=== PATIENT | male | born 1990 | race African-American/Black ===

== ENCOUNTER 2024-08-25 14:17 | Inpatient (IN) | payer MEDICAID, SELFPAY ==
[2024-08-25] MEDS: LORazepam 1 MG TABLET PO (14:48)
[2024-08-25 14:53] VITALS: BMI 27.9
[2024-08-25 14:54] VITALS: BP 133/74; PULSE 75; RESP 16; TEMP 36.3; O2SAT 98
--- NOTE | 2024-08-25 15:40 | HO.PM.IMCN ---
History of Present Illness Data of Consult Service Date: 08/25/24 Primary Care Provider: None Physician HPI Reason for consult: Medical management 34-year-old male with a past medical history of bipolar disorder, anxiety, depression, suicidal ideation. Presented to [facility] with increased paranoia, and poor sleep, and suicidal ideation with a plan to overdose on fentanyl. Patient reports that he does not have insurance and ran out of his medications and has been off of them for 1 week. He is admitted here for further care. Patient reports that he is HIV positive, previously took Biktarvy, he has been off of all medications for 1 year due to social issues including homelessness and insurance. On exam he is alert, and cooperative. Denies any medical concerns. Concerned about discoloration that he has his fingertips, he is a cigarette smoker. Reports that he has discoloration to his fingertips and his toenails that has been persistent for a few months. No jaundice noted to his eyes, his skin color is within normal limits for his ethnicity. Denies any shortness of breath, chest pain, dizziness lightheadedness or any other concerning symptoms. Review of Systems Review of Systems: Denies any shortness of breath, chest pain, dizziness, lightheadedness, abdominal pain or discomfort, nausea vomiting or diarrhea PMFSH Social History Advance Directives: No Advance Directives Information Provided: No Meds Allergies Allergy/AdvReac Type Severity Reaction Status Date / Time aspirin Allergy Hemolytic Verified 08/25/24 14:52 Anemia quetiapine (From Seroquel) Allergy Seizure Verified 08/25/24 15:56 Active Medications: Current Medications Acetaminophen (Acetaminophen 325 Mg Tablet) 650 mg PO Q6H PRN PRN Reason: Headache/Pain, Scale 1-10 Al Hydroxide/Mg Hydroxide (Magnesium Hydrox/Alum Hydrox 30 Ml Oral.Susp) 30 ml PO Q6H PRN PRN Reason: Heartburn/Nausea Hydroxyzine HCl (Hydroxyzine Hcl 25 Mg Tablet) 25 mg PO Q6H PRN PRN Reason: mild anxiety Magnesium Hydroxide (Milk Of Magnesia 30 Ml Oral.Susp) 30 ml PO DAILY PRN PRN Reason: Constipation Nicotine Polacrilex (Nicotine Polacrilex 2 Mg Gum) 4 mg BUCCAL Q2H PRN PRN Reason: Nicotine Cravings Trazodone HCl (Trazodone Hcl 50 Mg Tablet) 50 mg PO BEDTIME X1 PRN PRN Reason: Insomnia Home Medications ?Medication ?Instructions ?Recorded ?Confirmed ?Last Taken ?Type aripiprazole 15 mg tablet (Abilify) 15 mg PO DAILY 08/25/24 08/25/24 08/25/24 History sertraline 100 mg tablet 100 mg PO DAILY 08/25/24 08/25/24 08/25/24 History trazodone 50 mg tablet 50 mg PO BEDTIME 08/25/24 08/25/24 08/24/24 History Physical Exam Vital Signs and Narrative: Vital Signs: Last Vital Signs Temp 97.3 F 08/25/24 14:54 Pulse 75 08/25/24 14:54 Resp 16 08/25/24 14:54 BP 133/74 08/25/24 14:54 Pulse Ox 98 08/25/24 14:54 O2 Del Method Room Air 08/25/24 14:54 BMI result Body Mass Index 27.9 Alert and oriented X3, able to give good history. Neuro: CN II-X11 intact, no deficits, visual acuity intact EYES: PERRLA, EOM intact ENT: Hearing intact, lips moist Cardiac: S1 S2 RRR, No ectopy Pulmonary: lungs clear to auscultation, No increased WOB. Abdominal: BS active in all 4 quadrants, no guarding or tenderness MSK: Strength 5/5 upper and lower extremities : Deferred Extremities: No edema in lower extremities Psych: mood stable, Quiet and cooperative. Skin: Warm and dry, Intact Assessment and Plan (1) Bipolar 1 disorder: Status: Acute Plan Bipolar disorder/anxiety/depression Treatment per psych team HIV+ Patient has been off of his medications for 1 year Consult [place]
--- NOTE | 2024-08-25 15:53 | HO.PSYADMNOT ---
HPI Date of Service: 08/25/24 Chief Complaint: mental health crisis Sources of Information: patient interviewed, chart reviewed and crisis/core team assessment reviewed HPI Subjective Notes: Figueroa Warning and Conditional Voluntary Narrative: Patient is a 34 year old male with hx of bipolar disorder and PTSD presented ER due to suicidal ideation secondary being off his medications for about 1 week. Per crisis report, patient reports he has been very anxious and paranoid and has not been sleeping due to not having his medications for 1 week. He reports he began to have suicidal ideation last night with plan to overdose on fentanyl. Utox negative for all substances. Patient stated, when I am off my medications I have thoughts of hurting myself. I have not slept in a week. I feel like I am going in a very dark place . History of overdosing. History of attending substance abuse programs; history of cocaine use. During admission assessment, patient presents alert and oriented x3. Calm and cooperative. Patient reports feeling depressed ; patient stated, I just moved here 2 days ago from [place]. I'm originally from here and I wanted to get reconnected with family. I'm feeling suicidal because I can only do this so many times, where I go off my medications and I don't feel good. Maybe I'm better off not here . denies HI/VH/AH. He reports he does not have outpatient psychiatric providers at this time. Patient reports suicidal ideation with a plan to overdose on fentanyl. Past Psychiatric History: hx of 3 other inpatient psychiatric hospitalizations. hx of SA via OD on seroquel and fentanyl a year ago. denies hx of SIB. Medical Evaluation Reviewed: Yes [facility] Family History: Mother: bipolar Social History: Homeless, single. no kids. unemployed. highest level of education completed GED. Substance History: Pt reports using cocaine last weekend. denies any other substance use. utox negative for all substances. Trauma History: yes Diagnostics Vital Signs (24Hr): Vital Signs - 24 hr 08/25/24 14:54 Temperature 97.3 F Pulse Rate 75 Respiratory Rate 16 Blood Pressure 133/74 Pulse Oximetry 98 Oxygen Delivery Method Room Air BMI result Body Mass Index 27.9 Meds/Allergies Meds Home Medications ?Medication ?Instructions ?Recorded ?Confirmed ?Type aripiprazole 15 mg tablet (Abilify) 15 mg PO DAILY 08/25/24 08/25/24 History sertraline 100 mg tablet 100 mg PO DAILY 08/25/24 08/25/24 History trazodone 50 mg tablet 50 mg PO BEDTIME 08/25/24 08/25/24 History Allergies Allergies Allergy/AdvReac Type Severity Reaction Status Date / Time aspirin Allergy Hemolytic Verified 08/25/24 14:52 Anemia quetiapine (From Seroquel) Allergy Seizure Verified 08/25/24 15:56 Mental Status Exam Mental Status Exam Narrative: Pt is alert and oriented; behavior is cooperative and calm; dressed in casual attire; mood is described as depressed ; eye contact appropriate; Speech is normal rate, volume and not pressured; thought process is organized and goal directed; Thought content is on tx; denies HI/VH/AH. Patient reports suicidal ideation with a plan to overdose on fentanyl. Assessment & Plan Assessment & Plan (1) Bipolar 1 disorder: Status: Acute Code(s): F31.9 - Bipolar disorder, unspecified (2) PTSD (post-traumatic stress disorder): Status: Acute Code(s): F43.10 - Post-traumatic stress disorder, unspecified (3) Homelessness: Status: Acute Code(s): Z59.00 - Homelessness unspecified Plan Patient is a 34 year old male with hx of bipolar disorder and PTSD presented ER due to suicidal ideation secondary being off his medications for about 1 week. Plan: CV 15 minute safety checks Continue home medications Obtain collateral Encourage groups Referral to outpatient psychiatric providers Discharge planning Patient educated on: diagnosis and medication risk/benefits Reason for continued inpatient stay Substantial Risk for: harm to self and med/psych decompensation Statement Statement: I have reviewed the history and physical and performed a pertinent examination on my patient. No changes have occurred unless specified. If the History and Physical was not performed prior to admission, the Hospitalist's service will be consulted for completing the admission physical. Time Spent With Patient Time: Total time managing care of this patient today _60___ minutes.
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
[2024-08-25] MEDS: Hydrocortisone 1 % Cream 28.35 GM TUBE 1 APPL TOPICAL (18:54)
[2024-08-25 20:00] VITALS: BP 134/78; PULSE 80; RESP 16; TEMP 36.4; O2SAT 98
[2024-08-25 22:07] VITALS: BP 137/88
[2024-08-25] MEDS: cloNIDine HCL 0.1 MG TABLET PO (22:07)
[2024-08-25] MEDS: hydrOXYzine HCL 25 MG TABLET PO (22:07)
[2024-08-25] MEDS: chlorproMAZINE HCl 25 MG TABLET PO (22:07)
[2024-08-25] MEDS: traZODone HCL 50 MG TABLET PO (23:37)
--- NOTE | 2024-08-26 | ECG_ITS ---
Test Reason : CK QT Blood Pressure : */* mmHG Vent. Rate : 72 BPM Atrial Rate : 72 BPM P-R Int : 142 ms QRS Dur : 96 ms QT Int : 404 ms P-R-T Axes : 42 28 3 degrees QTcB Int : 442 ms Normal sinus rhythm Minimal voltage criteria for LVH, may be normal variant ( R in aVL ) ST elevation, consider early repolarization, pericarditis, or injury Nonspecific ST and T wave abnormality Abnormal ECG No previous ECGs available Referred By: Ivelisse García Electronically Signed By: WILFRID STEPHENS
[2024-08-26 07:59] VITALS: BP 96/55; PULSE 80; RESP 16; TEMP 36.4; O2SAT 99
--- NOTE | 2024-08-26 07:59 | PC.NURSE ---
At the start of the shift Ej was having blood drawn when he became nauseous and lightheaded. He became minimally responsive to verbal commands but was still able to flutter his eyes open. Breathing was even and unlabored. Oxygen remained 98-100% throughout episode. Ej was noted to be hypotensive at 83/44 and bradycardic with HR fluctuating around 50BPM. Dr. Thornton was present on the unit and was able to check in with Ej. Within five minutes the episode began to pass and Ej began talking more actively and feeling better. Upon recheck BP was 101/60 and pulse was 68. He began speaking normally, drinking juice, and eating a sandwich. He was seen by ANITHA García who stated that this was likely a vasovegal episode brought on by the combination of clonidine and needle phobia. Clonidine was DC'd.
[2024-08-26 08:23] LABS: Estimated Average Glucose 85 mg/dL; Hemoglobin A1c % 4.6 % (<6.0); Total Hemoglobin (HGBA1C) 3617.0002 umol/L
[2024-08-26 08:31] LABS: Cholesterol 143 mg/dL (<200); HDL Cholesterol 37 mg/dL (>40); LDL Cholesterol Calculated 69 mg/dL (<100); Triglycerides 187 mg/dL (<150)
--- NOTE | 2024-08-26 08:32 | HO.PM.IMCN ---
History of Present Illness Data of Consult Service Date: 08/26/24 Primary Care Provider: None Physician HPI Reason for consult: Synopal episode 34-year-old male with a past medical history of bipolar disorder, anxiety, depression, suicidal ideation. Presented to [facility] with increased paranoia, and poor sleep, and suicidal ideation with a plan to overdose on fentanyl. Admittd to inpatient psych for treatment. Reported by nursing that as patient had his blood drawn, he became nauseous and lightheaded. Per nursing he was minimally responsive to verbal commands, hypotensive at 83/44 and bradycardic with HR around 50 BPM. On exam he is awake and alert , eating a large breakfast. Vitals and mentation improved. He reports having seizure like episode last evening but this is self reported. Not verified by staff. He reports feeling shaky, but other gunn denies any SOB, Chest pain, dizziness, lightheadedness, palpitations or other concerning symptoms. Review of Systems Review of Systems: Denies any shortness of breath, chest pain, dizziness, lightheadedness, abdominal pain or discomfort, nausea vomiting or diarrhea PMFSH Social History Household Members: None Housing: Homeless Do you presently have visiting nurse or other home services: No Patient Tobacco Use Status: Current everyday Tobacco user Tobacco use type: Cigarette Cigarettes Per Day: 5 e-Cigarette/Vaping Use: Never Used Patient Interested in Nicotine Replacement: Yes (patch) Currently Displaying Signs/Symptoms of Drug Intoxication Withdrawal: No Have you been hit, kicked, punched, or otherwise hurt by someone within the past year? If so, by whom?: No Do you feel safe in your current relationship?: No Current Relationship Is there a partner from a previous relationship who is making you feel unsafe now?: No Are you made to feel afraid or neglected: No Spiritual Healthcare Practices: Yes Advance Directives: No Advance Directives Information Provided: No Do you have thoughts of harming others: None Do you have a plan to hurt others: No Plan Recently lost weight without trying: No How much weight loss: Not applicable Eating poorly because of decreased appetite: No Nutrition screen score: 0 Nutrition Risks: No Nutritional Risk Poor oral hygiene: No Meds Allergies Allergy/AdvReac Type Severity Reaction Status Date / Time aspirin Allergy Hemolytic Verified 08/25/24 14:52 Anemia quetiapine (From Seroquel) Allergy Seizure Verified 08/25/24 15:56 Active Medications: Current Medications Acetaminophen (Acetaminophen 325 Mg Tablet) 650 mg PO Q6H PRN PRN Reason: Headache/Pain, Scale 1-10 Al Hydroxide/Mg Hydroxide (Magnesium Hydrox/Alum Hydrox 30 Ml Oral.Susp) 30 ml PO Q6H PRN PRN Reason: Heartburn/Nausea Aripiprazole (Aripiprazole 15 Mg Tablet) 15 mg PO DAILY ADILENE Chlorpromazine HCl (Chlorpromazine Hcl 25 Mg Tablet) 25 mg PO Q6H PRN PRN Reason: Anxiety Last Admin: 08/25/24 22:07 Dose: 25 mg Hydrocortisone (Hydrocortisone 1 % Cream 28.35 Gm Tube) 1 appl TOPICAL BID PRN; Protocol PRN Reason: Dry Skin Last Admin: 08/25/24 18:54 Dose: 1 appl Hydroxyzine HCl (Hydroxyzine Hcl 25 Mg Tablet) 25 mg PO Q6H PRN PRN Reason: mild anxiety Last Admin: 08/25/24 22:07 Dose: 25 mg Magnesium Hydroxide (Milk Of Magnesia 30 Ml Oral.Susp) 30 ml PO DAILY PRN PRN Reason: Constipation Melatonin (Melatonin 3 Mg Tablet) 6 mg PO BEDTIME PRN PRN Reason: Insomnia Nicotine Polacrilex (Nicotine Polacrilex 2 Mg Gum) 4 mg BUCCAL Q2H PRN PRN Reason: Nicotine Cravings Olanzapine (Olanzapine 5 Mg Tablet) 5 mg PO Q4H PRN PRN Reason: agitation Sertraline HCl (Sertraline Hcl 100 Mg Tablet) 100 mg PO DAILY ADILENE Trazodone HCl (Trazodone Hcl 50 Mg Tablet) 50 mg PO BEDTIME MRX1 PRN PRN Reason: Insomnia Last Admin: 08/25/24 23:37 Dose: 50 mg Home Medications ?Medication ?Instructions ?Recorded ?Confirmed ?Last Taken ?Type aripiprazole 15 mg tablet (Abilify) 15 mg PO DAILY 08/25/24 08/25/24 08/25/24 History sertraline 100 mg tablet 100 mg PO DAILY 08/25/24 08/25/24 08/25/24 History trazodone 50 mg tablet 50 mg PO BEDTIME 08/25/24 08/25/24 08/24/24 History Physical Exam Vital Signs and Narrative: Vital Signs: Last Vital Signs Temp 97.5 F 08/26/24 07:59 Pulse 80 08/26/24 07:59 Resp 16 08/26/24 07:59 BP 96/55 L 08/26/24 07:59 Pulse Ox 99 08/26/24 07:59 O2 Del Method Room Air 08/26/24 07:59 BMI result Body Mass Index 27.9 CONST: Alert and oriented, in NAD. Well nourished HEENT: Normocephalic, atraumatic, MMM, Eyes clear, Neck supple RESP: Lungs clear, RRR even and regular HEART:,RRR, S1, S2. no edema GI:Abdomen Soft NT, ND. + BS times four :Deferred SKIN: Warm dry and intact, no visible lesions or rashes NEURO:CN II-XII Intact bilaterally, Sensation intact. Speech clear PSYCH: Normal affect Results Labs Labs: Laboratory Results - last 24 hr 08/26/24 07:47 Estimat Average Glucose 85 Hemoglobin A1c % 4.6 Triglycerides 187 H Cholesterol 143 LDL Cholesterol, Calc 69 HDL Cholesterol 37 L Assessment and Plan (1) Episode of syncope: Qualifiers: Syncope type: vasovagal syncope Qualified Code(s): R55 - Syncope and collapse Status: Acute Plan Synocopal episode-Likely due to Vasovagal response Most likely due to evening clonidine and blood draw. 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 Received dose of clonidine last evening, heart rate and blood pressure on the lower side this morning which may have contributed. Encourage fluids, DC clonidine. Continue to monitor and update medicine with any concerns or changes Thank you for allowing me to participate in the care of this patient. Signing off at this time. Please reconsult of any acute concerns or issues arise
[2024-08-26] MEDS: ARIPiprazole 15 MG TABLET PO (08:41)
[2024-08-26] MEDS: Sertraline HCL 100 MG TABLET PO (08:41)
[2024-08-26 08:47] LABS: Free T4 (Free Thyroxine) 0.89 ng/dL (0.71-1.85); Thyroid Stimulating Hormone 0.35 uIU/mL (0.32-4.0)
[2024-08-26 09:00] LABS: Folate 6.7 ng/mL (> or = 4.0)
--- NOTE | 2024-08-26 10:44 | HO.PSYCHPN ---
Subjective Subjective Date of Service: 08/26/24 Reason For Visit: mental health crisis Subjective Notes: Conditional Voluntary Interim History: Pt reports feeling better since restarting his home medications. pt stated, I'm not feeling depressed anymore. I'm just anxious. I feel like the medications kicked in . denies SI/HI/VH/AH. Encouraged to attend groups. Per nursing, slept 5 hours last night. Continue current tx plan. Medication Compliance: Yes Side effects from medications: No Attending Groups: No Mental Status Exam Mental Status Exam Narrative: Pt is alert and oriented; behavior is cooperative and calm; dressed in casual attire; mood is described as anxious ; eye contact appropriate; Speech is normal rate, volume and not pressured; thought process is organized; Thought content is on tx; denies SI/HI/VH/AH. Diagnostics Vital Signs (24Hr): Vital Signs - 24 hr 08/25/24 14:54 08/25/24 20:00 08/25/24 22:07 Temperature 97.3 F 97.6 F Pulse Rate 75 80 Respiratory Rate 16 16 Blood Pressure 133/74 134/78 137/88 Pulse Oximetry 98 98 Oxygen Delivery Method Room Air Room Air 08/26/24 07:59 Temperature 97.5 F Pulse Rate 80 Respiratory Rate 16 Blood Pressure 96/55 L Pulse Oximetry 99 Oxygen Delivery Method Room Air BMI result Body Mass Index 27.9 Labs Labs: Laboratory Results - last 48 hr 08/26/24 07:47 Estimat Average Glucose 85 Hemoglobin A1c % 4.6 Triglycerides 187 H Cholesterol 143 LDL Cholesterol, Calc 69 HDL Cholesterol 37 L Folate 6.7 TSH 0.35 Free T4 0.89 Medications Medications Current Medications Acetaminophen (Acetaminophen 325 Mg Tablet) 650 mg PO Q6H PRN PRN Reason: Headache/Pain, Scale 1-10 Al Hydroxide/Mg Hydroxide (Magnesium Hydrox/Alum Hydrox 30 Ml Oral.Susp) 30 ml PO Q6H PRN PRN Reason: Heartburn/Nausea Aripiprazole (Aripiprazole 15 Mg Tablet) 15 mg PO DAILY ADILENE Last Admin: 08/26/24 08:41 Dose: 15 mg Chlorpromazine HCl (Chlorpromazine Hcl 25 Mg Tablet) 25 mg PO Q6H PRN PRN Reason: Anxiety Last Admin: 08/25/24 22:07 Dose: 25 mg Hydrocortisone (Hydrocortisone 1 % Cream 28.35 Gm Tube) 1 appl TOPICAL BID PRN; Protocol PRN Reason: Dry Skin Last Admin: 08/25/24 18:54 Dose: 1 appl Hydroxyzine HCl (Hydroxyzine Hcl 25 Mg Tablet) 25 mg PO Q6H PRN PRN Reason: mild anxiety Last Admin: 08/25/24 22:07 Dose: 25 mg Magnesium Hydroxide (Milk Of Magnesia 30 Ml Oral.Susp) 30 ml PO DAILY PRN PRN Reason: Constipation Melatonin (Melatonin 3 Mg Tablet) 6 mg PO BEDTIME PRN PRN Reason: Insomnia Nicotine Polacrilex (Nicotine Polacrilex 2 Mg Gum) 4 mg BUCCAL Q2H PRN PRN Reason: Nicotine Cravings Olanzapine (Olanzapine 5 Mg Tablet) 5 mg PO Q4H PRN PRN Reason: agitation Sertraline HCl (Sertraline Hcl 100 Mg Tablet) 100 mg PO DAILY ADILENE Last Admin: 08/26/24 08:41 Dose: 100 mg Trazodone HCl (Trazodone Hcl 50 Mg Tablet) 50 mg PO BEDTIME MRX1 PRN PRN Reason: Insomnia Last Admin: 08/25/24 23:37 Dose: 50 mg Allergies Allergies Allergy/AdvReac Type Severity Reaction Status Date / Time aspirin Allergy Hemolytic Verified 08/25/24 14:52 Anemia quetiapine (From Seroquel) Allergy Seizure Verified 08/25/24 15:56 Assessment & Plan Assessment & Plan (1) Bipolar 1 disorder: Status: Acute Code(s): F31.9 - Bipolar disorder, unspecified (2) PTSD (post-traumatic stress disorder): Status: Acute Code(s): F43.10 - Post-traumatic stress disorder, unspecified (3) Homelessness: Status: Acute Code(s): Z59.00 - Homelessness unspecified Plan Patient is a 34 year old male with hx of bipolar disorder and PTSD presented ER due to suicidal ideation secondary being off his medications for about 1 week. Plan: CV 15 minute safety checks Continue home medications Obtain collateral Encourage groups Referral to outpatient psychiatric providers Discharge planning 08/26: Pt reports feeling better since restarting his home medications. pt stated, I'm not feeling depressed anymore. I'm just anxious. I feel like the medications kicked in . denies SI/HI/VH/AH. Encouraged to attend groups. Per nursing, slept 5 hours last night. Continue current tx plan. Patient educated on: diagnosis, medication risk/benefits and therapeutic strategies Reason for continued inpatient stay Substantial Risk for: med/psych decompensation Time Spent With Patient Time: Total time managing care of this patient today _20___ minutes.
[2024-08-26] MEDS: chlorproMAZINE HCl 25 MG TABLET PO ×2 (14:23→20:12)
[2024-08-26] MEDS: Nicotine Polacrilex 2 MG GUM 4 MG BUCCAL (14:31)
[2024-08-26] MEDS: Magnesium Hydrox/Alum Hydrox 30 ML ORAL.SUSP PO (16:24)
[2024-08-26] MEDS: Hydrocortisone 1 % Cream 28.35 GM TUBE 1 APPL TOPICAL (16:37)
[2024-08-26 20:00] VITALS: BP 123/61; PULSE 79; RESP 16; TEMP 36.8; O2SAT 99
[2024-08-26] MEDS: hydrOXYzine HCL 25 MG TABLET PO (20:12)
[2024-08-26] MEDS: traZODone HCL 50 MG TABLET PO (22:27)
--- NOTE | 2024-08-26 23:00 | W.PM.IDCN ---
History of Present Illness Data of Consult Service Date: 08/26/24 Requesting physician: Edy Sandoval Primary Care Provider: None Physician HPI Reason for consult: HIV positivity?meds He presents to hospital with SI and paranoia and poor sleep. He has thoughts of OD on fentanyl. He had been seen previously at [facility]. He has anxiety and depression and OUD and has moved to [place] and says previously lived in [place]. He denies OIs or STIs. Review of Systems Review of Systems: Yes all other systems are reviewed and are negative PMFSH Past Medical History Medical History (Updated 08/26/24 @ 23:04 by Joselin Fernandes MD) HIV (human immunodeficiency virus infection) Family History Family history: reviewed and not pertinent Social History Social History Household Members: None Housing: Homeless Do you presently have visiting nurse or other home services: No Patient Tobacco Use Status: Current everyday Tobacco user Tobacco use type: Cigarette Cigarettes Per Day: 5 e-Cigarette/Vaping Use: Never Used Patient Interested in Nicotine Replacement: Yes (patch) Currently Displaying Signs/Symptoms of Drug Intoxication Withdrawal: No Have you been hit, kicked, punched, or otherwise hurt by someone within the past year? If so, by whom?: No Do you feel safe in your current relationship?: No Current Relationship Is there a partner from a previous relationship who is making you feel unsafe now?: No Are you made to feel afraid or neglected: No Spiritual Healthcare Practices: Yes Advance Directives: No Advance Directives Information Provided: No Do you have thoughts of harming others: None Do you have a plan to hurt others: No Plan Recently lost weight without trying: No How much weight loss: Not applicable Eating poorly because of decreased appetite: No Nutrition screen score: 0 Nutrition Risks: No Nutritional Risk Poor oral hygiene: No service: No Sexual orientation: Straight/Heterosexual Meds Allergies Allergy/AdvReac Type Severity Reaction Status Date / Time aspirin Allergy Hemolytic Verified 08/25/24 14:52 Anemia quetiapine (From Seroquel) Allergy Seizure Verified 08/25/24 15:56 Active Medications: Current Medications Acetaminophen (Acetaminophen 325 Mg Tablet) 650 mg PO Q6H PRN PRN Reason: Headache/Pain, Scale 1-10 Al Hydroxide/Mg Hydroxide (Magnesium Hydrox/Alum Hydrox 30 Ml Oral.Susp) 30 ml PO Q6H PRN PRN Reason: Heartburn/Nausea Last Admin: 08/26/24 16:24 Dose: 30 ml Aripiprazole (Aripiprazole 15 Mg Tablet) 15 mg PO DAILY [facility] Last Admin: 08/26/24 08:41 Dose: 15 mg Bictegravir/Emtricitabine/Tenofovir (Bictegrav/Emtricit/Tenofov Ala Tablet) 1 tab PO DAILY [facility] Chlorpromazine HCl (Chlorpromazine Hcl 25 Mg Tablet) 25 mg PO Q6H PRN PRN Reason: Anxiety Last Admin: 08/26/24 20:12 Dose: 25 mg Hydrocortisone (Hydrocortisone 1 % Cream 28.35 Gm Tube) 1 appl TOPICAL BID PRN; Protocol PRN Reason: Dry Skin Last Admin: 08/26/24 16:37 Dose: 1 appl Hydroxyzine HCl (Hydroxyzine Hcl 25 Mg Tablet) 25 mg PO Q6H PRN PRN Reason: mild anxiety Last Admin: 08/26/24 20:12 Dose: 25 mg Magnesium Hydroxide (Milk Of Magnesia 30 Ml Oral.Susp) 30 ml PO DAILY PRN PRN Reason: Constipation Melatonin (Melatonin 3 Mg Tablet) 6 mg PO BEDTIME PRN PRN Reason: Insomnia Nicotine Polacrilex (Nicotine Polacrilex 2 Mg Gum) 4 mg BUCCAL Q2H PRN PRN Reason: Nicotine Cravings Last Admin: 08/26/24 14:31 Dose: 4 mg Olanzapine (Olanzapine 5 Mg Tablet) 5 mg PO Q4H PRN PRN Reason: agitation Sertraline HCl (Sertraline Hcl 100 Mg Tablet) 100 mg PO DAILY [facility] Last Admin: 08/26/24 08:41 Dose: 100 mg Trazodone HCl (Trazodone Hcl 50 Mg Tablet) 50 mg PO BEDTIME MRX1 PRN PRN Reason: Insomnia Last Admin: 08/26/24 22:27 Dose: 50 mg Home Medications ?Medication ?Instructions ?Recorded ?Confirmed ?Last Taken ?Type aripiprazole 15 mg tablet (Abilify) 15 mg PO DAILY 08/25/24 08/25/24 08/25/24 History sertraline 100 mg tablet 100 mg PO DAILY 08/25/24 08/25/24 08/25/24 History trazodone 50 mg tablet 50 mg PO BEDTIME 08/25/24 08/25/24 08/24/24 History Physical Exam Vital Signs: Vital Signs: Last Vital Signs Temp 98.2 F 08/26/24 20:00 Pulse 79 08/26/24 20:00 Resp 16 08/26/24 20:00 BP 123/61 08/26/24 20:00 Pulse Ox 99 08/26/24 20:00 O2 Del Method Room Air 08/26/24 20:00 BMI result Body Mass Index 27.9 Const: General: cooperative HEENT: Head: Yes normal to inspection Mouth: Normal oral and palatal mucosa present Resp: Effort & Inspection: normal respiratory effort Cardio: Rate: regular rate GI: Inspection: Yes normal to inspection Neuro: Other: nonfocal Assessment and Plan (1) HIV (human immunodeficiency virus infection): Status: Acute Plan He is interested in starting back on Biktarvy,he has been off for a year. Restart Biktary. Check labs,viral load ,CD4 count,some STI check I have set him up with outpatient care.
[2024-08-27 08:00] VITALS: BP 115/66; PULSE 103; RESP 16; TEMP 36.7; O2SAT 97
[2024-08-27 08:16] LABS: MANUAL DIFF FLAG NO
[2024-08-27 08:23] LABS: Basophils Percent Auto 0.3 % (0-2); Eosinophils Percent Auto 0.8 % (0-4); Hematocrit 39.3 % (42.0-52.0); Hemoglobin 13.8 g/dl (14.0-18.0); Imm Gran Abs Auto 0.02 X10*3/uL (0.00-0.03); Imm Gran Pct Auto 0.5 % (0.0-0.4); Lymphocytes Absolute Auto 1.7 X10*3/uL (1.2-4.9); Lymphocytes Percent Auto 45.6 % (20-40); Mean Corpuscular HGB Conc 35.1 g/dl (31.0-36.0); Mean Corpuscular Hemoglobin 31.9 pg (27.0-33.0); Mean Platelet Volume 11.5 fL (9.4-12.4); Monocytes Absolute Auto 0.3 X10*3/uL (0.1-1.2); Monocytes Percent Auto 8.5 % (2-11); Neutrophils Absolute Auto 1.7 x10*3/uL (2.0-8.3); Neutrophils Percent Auto 44.3 % (45-73); Platelet Count 167 X10*3/uL (160-400); Red Blood Count 4.32 X10*6/uL (4.60-5.80); Red Cell Distribution Width 12.6 % (11.0-16.0); White Blood Count 3.8 X10*3/uL (4.8-10.8)
[2024-08-27 08:39] LABS: Alanine Aminotransferase 17 U/L (0-40); Albumin Level 4.3 g/dL (3.5-5.0); Alkaline Phosphatase 51 U/L (39-117); Anion Gap 11 (12-20); Aspartate Amino Transferase 21 U/L (5-37); Bilirubin Direct 0.2 mg/dL (0.0-0.5); Bilirubin Total 0.6 mg/dL (0.0-1.0); Blood Urea Nitrogen 16 mg/dL (9-16); Calcium 10.1 mg/dL (8.4-10.2); Carbon Dioxide 25 mmol/L (22-29); Chloride 106 mmol/L (96-108); Estimated Glomerular Filt Rate > 60; Glucose Random 105 mg/dL (60-115); Potassium 4.4 mmol/L (3.3-5.1); Sodium 138 mmol/L (135-145); Total Protein 7.5 g/dL (6.5-8.0)
[2024-08-27 09:01] LABS: HBsAGNum1 0.42 S/CO (0.00-0.99); Hepatitis B Surface Antigen Negative (Negative); ~HepC Num1 1.43 S/CO (0.00-0.79); ~Hepatitis B Surface Antibody REACTIVE (Nonreactive); ~Hepatitis C Antibody Reactive (Nonreactive)
[2024-08-27 09:03] LABS: Syphilis Screen Reactive (Nonreactive)
[2024-08-27] MEDS: ARIPiprazole 15 MG TABLET PO (09:44)
[2024-08-27] MEDS: Sertraline HCL 100 MG TABLET PO (09:44)
[2024-08-27] MEDS: Bictegrav/Emtricit/Tenofov Ala TABLET 1 TAB PO (10:55)
--- NOTE | 2024-08-27 12:11 | P.PNPSI_ITS ---
Subjective Subjective Date of Service: 08/27/24 Reason For Visit: mental health crisis Subjective Notes: Conditional Voluntary Interim History: Pt continues to report feeling good ; he reports sleeping well last night. denies SI/HI/VH/AH. Pt reports he would like to be discharge on Saturday. If pt continues to improve will discharge; pt aware. Continue current tx plan. Medication Compliance: Yes Side effects from medications: No Attending Groups: No Mental Status Exam Mental Status Exam Narrative: Pt is alert and oriented; behavior is cooperative and calm; dressed in casual attire; mood is described as good ; eye contact appropriate; Speech is normal rate, volume and not pressured; thought process is organized; Thought content is on discharge; denies SI/HI/VH/AH. Diagnostics Vital Signs (24Hr): Vital Signs - 24 hr 08/26/24 20:00 08/27/24 08:00 Temperature 98.2 F 98.0 F Pulse Rate 79 103 H Respiratory Rate 16 16 Blood Pressure 123/61 115/66 Pulse Oximetry 99 97 Oxygen Delivery Method Room Air Room Air BMI result Body Mass Index 27.9 Labs 08/27/24 08:00 08/27/24 08:00 Labs: Laboratory Results - last 48 hr 08/26/24 08/27/24 07:47 08:00 WBC 3.8 L RBC 4.32 L Hgb 13.8 L Hct 39.3 L MCV 91.0 MCH 31.9 MCHC 35.1 RDW 12.6 Plt Count 167 MPV 11.5 Immature Gran % (Auto) 0.5 H Neut % (Auto) 44.3 L Lymph % (Auto) 45.6 H [place] % (Auto) 8.5 Eos % (Auto) 0.8 Baso % (Auto) 0.3 Lymph # (Auto) 1.7 [place] # (Auto) 0.3 Eos # (Auto) 0.0 Baso # (Auto) 0.0 Abs Immat Gran (auto) 0.02 Absolute Neuts (auto) 1.7 L Absolute Nucleated RBC 0.000 Nucleated RBC % (auto) 0.0 Sodium 138 Potassium 4.4 Chloride 106 Carbon Dioxide 25 Anion Gap 11 L BUN 16 Creatinine 1.07 Estim Creat Clear Calc 112.0 Estimated GFR > 60 Random Glucose 105 Estimat Average Glucose 85 Hemoglobin A1c % 4.6 Calcium 10.1 Total Bilirubin 0.6 Direct Bilirubin 0.2 AST 21 ALT 17 Alkaline Phosphatase 51 Total Protein 7.5 Albumin 4.3 Triglycerides 187 H Cholesterol 143 LDL Cholesterol, Calc 69 HDL Cholesterol 37 L Folate 6.7 TSH 0.35 Free T4 0.89 T.pallidum Ab (EIA) Reactive A Hep Bs Antigen Negative Hep Bs Antibody REACTIVE Hepatitis C Ab (EIA) Reactive H Medications Medications Current Medications Acetaminophen (Acetaminophen 325 Mg Tablet) 650 mg PO Q6H PRN PRN Reason: Headache/Pain, Scale 1-10 Al Hydroxide/Mg Hydroxide (Magnesium Hydrox/Alum Hydrox 30 Ml Oral.Susp) 30 ml PO Q6H PRN PRN Reason: Heartburn/Nausea Last Admin: 08/26/24 16:24 Dose: 30 ml Aripiprazole (Aripiprazole 15 Mg Tablet) 15 mg PO DAILY [facility] Last Admin: 08/27/24 09:44 Dose: 15 mg Bictegravir/Emtricitabine/Tenofovir (Bictegrav/Emtricit/Tenofov Ala Tablet) 1 tab PO DAILY [facility] Last Admin: 08/27/24 10:55 Dose: 1 tab Chlorpromazine HCl (Chlorpromazine Hcl 25 Mg Tablet) 25 mg PO Q6H PRN PRN Reason: Anxiety Last Admin: 08/26/24 20:12 Dose: 25 mg Hydrocortisone (Hydrocortisone 1 % Cream 28.35 Gm Tube) 1 appl TOPICAL BID PRN; Protocol PRN Reason: Dry Skin Last Admin: 08/26/24 16:37 Dose: 1 appl Hydroxyzine HCl (Hydroxyzine Hcl 25 Mg Tablet) 25 mg PO Q6H PRN PRN Reason: mild anxiety Last Admin: 08/26/24 20:12 Dose: 25 mg Magnesium Hydroxide (Milk Of Magnesia 30 Ml Oral.Susp) 30 ml PO DAILY PRN PRN Reason: Constipation Melatonin (Melatonin 3 Mg Tablet) 6 mg PO BEDTIME PRN PRN Reason: Insomnia Nicotine Polacrilex (Nicotine Polacrilex 2 Mg Gum) 4 mg BUCCAL Q2H PRN PRN Reason: Nicotine Cravings Last Admin: 08/26/24 14:31 Dose: 4 mg Olanzapine (Olanzapine 5 Mg Tablet) 5 mg PO Q4H PRN PRN Reason: agitation Sertraline HCl (Sertraline Hcl 100 Mg Tablet) 100 mg PO DAILY [facility] Last Admin: 08/27/24 09:44 Dose: 100 mg Trazodone HCl (Trazodone Hcl 50 Mg Tablet) 50 mg PO BEDTIME MRX1 PRN PRN Reason: Insomnia Last Admin: 08/26/24 22:27 Dose: 50 mg Allergies Allergies Allergy/AdvReac Type Severity Reaction Status Date / Time aspirin Allergy Hemolytic Verified 08/25/24 14:52 Anemia quetiapine (From Seroquel) Allergy Seizure Verified 08/25/24 15:56 Assessment & Plan Assessment & Plan (1) Bipolar 1 disorder: Status: Acute Code(s): F31.9 - Bipolar disorder, unspecified (2) PTSD (post-traumatic stress disorder): Status: Acute Code(s): F43.10 - Post-traumatic stress disorder, unspecified (3) HIV (human immunodeficiency virus infection): Status: Acute Code(s): Z21 - Asymptomatic human immunodeficiency virus [HIV] infection status (4) Homelessness: Status: Acute Code(s): Z59.00 - Homelessness unspecified Plan Patient is a 34 year old male with hx of bipolar disorder and PTSD presented ER due to suicidal ideation secondary being off his medications for about 1 week. Plan: CV 15 minute safety checks Continue home medications Obtain collateral Encourage groups Referral to outpatient psychiatric providers Discharge planning 08/26: Pt reports feeling better since restarting his home medications. pt stated, I'm not feeling depressed anymore. I'm just anxious. I feel like the medications kicked in . denies SI/HI/VH/AH. Encouraged to attend groups. Per nursing, slept 5 hours last night. Continue current tx plan. 08/27: Pt continues to report feeling good ; he reports sleeping well last night. denies SI/HI/VH/AH. Pt reports he would like to be discharge on Saturday. If pt continues to improve will discharge; pt aware. Continue current tx plan. Patient educated on: diagnosis, medication risk/benefits and therapeutic strategies Reason for continued inpatient stay Substantial Risk for: med/psych decompensation Time Spent With Patient Time: Total time managing care of this patient today __20__ minutes.
[2024-08-27] MEDS: Hydrocortisone 1 % Cream 28.35 GM TUBE 1 APPL TOPICAL (13:08)
[2024-08-27] MEDS: chlorproMAZINE HCl 25 MG TABLET PO ×2 (14:08→20:14)
[2024-08-27] MEDS: Milk of Magnesia 30 ML ORAL.SUSP PO (15:31)
[2024-08-27 20:00] VITALS: BP 114/56; PULSE 101; RESP 18; TEMP 37.2; O2SAT 98
[2024-08-27] MEDS: hydrOXYzine HCL 25 MG TABLET PO (20:14)
[2024-08-27] MEDS: traZODone HCL 50 MG TABLET PO (22:31)
[2024-08-27] MEDS: Magnesium Hydrox/Alum Hydrox 30 ML ORAL.SUSP PO (22:33)
[2024-08-28 07:59] VITALS: BP 124/60; PULSE 85; RESP 16; TEMP 36.9; O2SAT 99
[2024-08-28] MEDS: Sertraline HCL 100 MG TABLET PO (08:36)
[2024-08-28] MEDS: Bictegrav/Emtricit/Tenofov Ala TABLET 1 TAB PO (08:36)
[2024-08-28] MEDS: ARIPiprazole 15 MG TABLET PO (08:36)
[2024-08-28 08:57] LABS: Hepatitis A Antibody IgG Nonreactive (Nonreactive); ~Hepatitis A Antibody IgG 0.81 S/CO (0.00-0.99)
[2024-08-28] MEDS: ARIPiprazole 5 MG TABLET PO (12:04)
[2024-08-28 13:18] LABS: Toxoplasma IgG Antibody <7.20 IU/mL; Toxoplasma IgM Antibody <8.00 AU/mL
[2024-08-28] MEDS: Milk of Magnesia 30 ML ORAL.SUSP PO (13:42)
[2024-08-28] MEDS: polyethylene glycoL 3350 17 GM POWD.PACK PO (15:03)
[2024-08-28] MEDS: bisacodyL 10 MG SUPP.RECT PR (15:47)
[2024-08-28] MEDS: chlorproMAZINE HCl 25 MG TABLET PO ×2 (15:47→23:03)
--- NOTE | 2024-08-28 16:13 | HO.PSYCHPN ---
Subjective Subjective Date of Service: 08/28/24 Reason For Visit: mental health crisis Interim History: c/o ongoing paranoia of ppl staring, judging, laughing at him, talking about him. agrees to increase abilify to 20 mg daily. also c/o severe social anxiety. no change in zoloft dosing in years. agrees to increase dosing to 150 mg daily. per staff, anxious. flat. taking eds. napping intermittently. slept 8 hours. DC saturday. Mental Status Exam Mental Status Exam Narrative: Pt is alert and oriented; behavior is cooperative and calm; dressed in casual attire; mood is described as socially anxious; eye contact appropriate; Speech is normal rate, volume and not pressured; thought process is organized; Thought content is on discharge; denies SI/HI/VH/AH. Diagnostics Vital Signs (24Hr): Vital Signs - 24 hr 08/27/24 20:00 08/28/24 07:59 Temperature 98.9 F 98.4 F Pulse Rate 101 H 85 Respiratory Rate 18 16 Blood Pressure 114/56 L 124/60 Pulse Oximetry 98 99 Oxygen Delivery Method Room Air Room Air BMI result Body Mass Index 27.9 Labs 08/27/24 08:00 08/27/24 08:00 Labs: Laboratory Results - last 48 hr 08/27/24 08:00 WBC 3.8 L RBC 4.32 L Hgb 13.8 L Hct 39.3 L MCV 91.0 MCH 31.9 MCHC 35.1 RDW 12.6 Plt Count 167 MPV 11.5 Immature Gran % (Auto) 0.5 H Neut % (Auto) 44.3 L Lymph % (Auto) 45.6 H [place] % (Auto) 8.5 Eos % (Auto) 0.8 Baso % (Auto) 0.3 Lymph # (Auto) 1.7 [place] # (Auto) 0.3 Eos # (Auto) 0.0 Baso # (Auto) 0.0 Abs Immat Gran (auto) 0.02 Absolute Neuts (auto) 1.7 L Absolute Nucleated RBC 0.000 Nucleated RBC % (auto) 0.0 Sodium 138 Potassium 4.4 Chloride 106 Carbon Dioxide 25 Anion Gap 11 L BUN 16 Creatinine 1.07 Estim Creat Clear Calc 112.0 Estimated GFR > 60 Random Glucose 105 Calcium 10.1 Total Bilirubin 0.6 Direct Bilirubin 0.2 AST 21 ALT 17 Alkaline Phosphatase 51 Total Protein 7.5 Albumin 4.3 T.pallidum Ab (EIA) Reactive A Hepatitis A IgG Ab Nonreactive Hep Bs Antigen Negative Hep Bs Antibody REACTIVE Hepatitis C Ab (EIA) Reactive H Toxoplasma IgG Ab <7.20 Toxoplasma IgM Ab <8.00 Toxoplasma Ab Interp SEE NOTE Medications Medications Current Medications Acetaminophen (Acetaminophen 325 Mg Tablet) 650 mg PO Q6H PRN PRN Reason: Headache/Pain, Scale 1-10 Al Hydroxide/Mg Hydroxide (Magnesium Hydrox/Alum Hydrox 30 Ml Oral.Susp) 30 ml PO Q6H PRN PRN Reason: Heartburn/Nausea Last Admin: 08/27/24 22:33 Dose: 30 ml Aripiprazole (Aripiprazole 20 Mg Tablet) 20 mg PO DAILY [facility] Bictegravir/Emtricitabine/Tenofovir (Bictegrav/Emtricit/Tenofov Ala Tablet) 1 tab PO DAILY [facility] Last Admin: 08/28/24 08:36 Dose: 1 tab Chlorpromazine HCl (Chlorpromazine Hcl 25 Mg Tablet) 25 mg PO Q6H PRN PRN Reason: Anxiety Last Admin: 08/28/24 15:47 Dose: 25 mg Hydrocortisone (Hydrocortisone 1 % Cream 28.35 Gm Tube) 1 appl TOPICAL BID PRN; Protocol PRN Reason: Dry Skin Last Admin: 08/27/24 13:08 Dose: 1 appl Hydroxyzine HCl (Hydroxyzine Hcl 25 Mg Tablet) 25 mg PO Q6H PRN PRN Reason: mild anxiety Last Admin: 08/27/24 20:14 Dose: 25 mg Magnesium Hydroxide (Milk Of Magnesia 30 Ml Oral.Susp) 30 ml PO DAILY PRN PRN Reason: Constipation Last Admin: 08/28/24 13:42 Dose: 30 ml Melatonin (Melatonin 3 Mg Tablet) 6 mg PO BEDTIME PRN PRN Reason: Insomnia Nicotine Polacrilex (Nicotine Polacrilex 2 Mg Gum) 4 mg BUCCAL Q2H PRN PRN Reason: Nicotine Cravings Last Admin: 08/26/24 14:31 Dose: 4 mg Olanzapine (Olanzapine 5 Mg Tablet) 5 mg PO Q4H PRN PRN Reason: agitation Sertraline HCl (Sertraline Hcl 50 Mg Tablet) 150 mg PO DAILY [facility] Trazodone HCl (Trazodone Hcl 50 Mg Tablet) 50 mg PO BEDTIME MRX1 PRN PRN Reason: Insomnia Last Admin: 08/27/24 22:31 Dose: 50 mg Allergies Allergies Allergy/AdvReac Type Severity Reaction Status Date / Time aspirin Allergy Hemolytic Verified 08/25/24 14:52 Anemia quetiapine (From Seroquel) Allergy Seizure Verified 08/25/24 15:56 Assessment & Plan Assessment & Plan (1) Bipolar 1 disorder: Status: Acute Code(s): F31.9 - Bipolar disorder, unspecified (2) PTSD (post-traumatic stress disorder): Status: Acute Code(s): F43.10 - Post-traumatic stress disorder, unspecified (3) HIV (human immunodeficiency virus infection): Status: Acute Code(s): Z21 - Asymptomatic human immunodeficiency virus [HIV] infection status (4) Homelessness: Status: Acute Code(s): Z59.00 - Homelessness unspecified Plan Patient is a 34 year old male with hx of bipolar disorder and PTSD presented ER due to suicidal ideation secondary being off his medications for about 1 week. Plan: CV 15 minute safety checks Continue home medications Obtain collateral Encourage groups Referral to outpatient psychiatric providers Discharge planning 08/26: Pt reports feeling better since restarting his home medications. pt stated, I'm not feeling depressed anymore. I'm just anxious. I feel like the medications kicked in . denies SI/HI/VH/AH. Encouraged to attend groups. Per nursing, slept 5 hours last night. Continue current tx plan. 08/27: Pt continues to report feeling good ; he reports sleeping well last night. denies SI/HI/VH/AH. Pt reports he would like to be discharge on Saturday. If pt continues to improve will discharge; pt aware. Continue current tx plan. 08/28: increase abilify to 20 mg daily for ongoing paranoia. increase zoloft to 150 mg daily for social anxiety. improved mood from admission. planning to discharge saturday. Reason for continued inpatient stay Substantial Risk for: inability to function and rapid decompensation Time Spent With Patient Time: Total time managing care of this patient today _25___ minutes.
[2024-08-28] MEDS: Nicotine Polacrilex 2 MG GUM 4 MG BUCCAL (19:05)
[2024-08-28 20:00] VITALS: BP 137/78; PULSE 104; RESP 16; TEMP 36.8; O2SAT 99
[2024-08-28] MEDS: Magnesium Hydrox/Alum Hydrox 30 ML ORAL.SUSP PO (20:59)
[2024-08-28] MEDS: hydrOXYzine HCL 25 MG TABLET PO (21:48)
[2024-08-28] MEDS: traZODone HCL 50 MG TABLET PO ×2 (22:06→23:03)
[2024-08-29 07:45] VITALS: BP 103/56; PULSE 82; RESP 14; TEMP 36.5; O2SAT 98
[2024-08-29] MEDS: ARIPiprazole 20 MG TABLET PO (09:07)
[2024-08-29] MEDS: Bictegrav/Emtricit/Tenofov Ala TABLET 1 TAB PO (09:08)
[2024-08-29] MEDS: Sertraline HCL 50 MG TABLET 150 MG PO (09:09)
[2024-08-29] MEDS: Nicotine Polacrilex 2 MG GUM 4 MG BUCCAL (12:36)
[2024-08-29] MEDS: hydrOXYzine HCL 25 MG TABLET PO (14:34)
--- NOTE | 2024-08-29 16:33 | HO.PSYCHPN ---
Subjective Subjective Date of Service: 08/29/24 Reason For Visit: mental health crisis Interim History: Patient feels improved. Less paranoid. Tolerating medication changes well. Feels ready for DC soon. He has no complaints today. Slept well. No AVH. No SI/HI. Review of Systems Review of Systems Denies any shortness of breath, chest pain, dizziness, lightheadedness, abdominal pain or discomfort, nausea vomiting or diarrhea Yes all other systems are reviewed and are negative Mental Status Exam Mental Status Exam Narrative: Pt is alert and oriented; behavior is cooperative and calm; dressed in casual attire; mood is described as socially anxious; eye contact appropriate; Speech is normal rate, volume and not pressured; thought process is organized; Thought content is on discharge; denies SI/HI/VH/AH. Diagnostics Vital Signs (24Hr): Vital Signs - 24 hr 08/28/24 20:00 08/29/24 07:45 Temperature 98.2 F 97.7 F Pulse Rate 104 H 82 Respiratory Rate 16 14 Blood Pressure 137/78 103/56 L Pulse Oximetry 99 98 Oxygen Delivery Method Room Air Room Air BMI result Body Mass Index 27.9 Labs 08/27/24 08:00 08/27/24 08:00 Labs: Laboratory Results - last 48 hr 08/27/24 08:00 Hepatitis A IgG Ab Nonreactive Toxoplasma IgG Ab <7.20 Toxoplasma IgM Ab <8.00 Toxoplasma Ab Interp SEE NOTE Medications Medications Current Medications Acetaminophen (Acetaminophen 325 Mg Tablet) 650 mg PO Q6H PRN PRN Reason: Headache/Pain, Scale 1-10 Al Hydroxide/Mg Hydroxide (Magnesium Hydrox/Alum Hydrox 30 Ml Oral.Susp) 30 ml PO Q6H PRN PRN Reason: Heartburn/Nausea Last Admin: 08/28/24 20:59 Dose: 30 ml Aripiprazole (Aripiprazole 20 Mg Tablet) 20 mg PO DAILY [facility] Last Admin: 08/29/24 09:07 Dose: 20 mg Bictegravir/Emtricitabine/Tenofovir (Bictegrav/Emtricit/Tenofov Ala Tablet) 1 tab PO DAILY [facility] Last Admin: 08/29/24 09:08 Dose: 1 tab Chlorpromazine HCl (Chlorpromazine Hcl 25 Mg Tablet) 25 mg PO Q6H PRN PRN Reason: Anxiety Last Admin: 08/28/24 23:03 Dose: 25 mg Hydrocortisone (Hydrocortisone 1 % Cream 28.35 Gm Tube) 1 appl TOPICAL BID PRN; Protocol PRN Reason: Dry Skin Last Admin: 08/27/24 13:08 Dose: 1 appl Hydroxyzine HCl (Hydroxyzine Hcl 25 Mg Tablet) 25 mg PO Q6H PRN PRN Reason: mild anxiety Last Admin: 08/29/24 14:34 Dose: 25 mg Magnesium Hydroxide (Milk Of Magnesia 30 Ml Oral.Susp) 30 ml PO DAILY PRN PRN Reason: Constipation Last Admin: 08/28/24 13:42 Dose: 30 ml Melatonin (Melatonin 3 Mg Tablet) 6 mg PO BEDTIME PRN PRN Reason: Insomnia Nicotine Polacrilex (Nicotine Polacrilex 2 Mg Gum) 4 mg BUCCAL Q2H PRN PRN Reason: Nicotine Cravings Last Admin: 08/29/24 12:36 Dose: 4 mg Olanzapine (Olanzapine 5 Mg Tablet) 5 mg PO Q4H PRN PRN Reason: agitation Sertraline HCl (Sertraline Hcl 50 Mg Tablet) 150 mg PO DAILY [facility] Last Admin: 08/29/24 09:09 Dose: 150 mg Trazodone HCl (Trazodone Hcl 50 Mg Tablet) 50 mg PO BEDTIME MRX1 PRN PRN Reason: Insomnia Last Admin: 08/28/24 23:03 Dose: 50 mg Allergies Allergies Allergy/AdvReac Type Severity Reaction Status Date / Time aspirin Allergy Hemolytic Verified 08/25/24 14:52 Anemia quetiapine (From Seroquel) Allergy Seizure Verified 08/25/24 15:56 Assessment & Plan Assessment & Plan (1) Bipolar 1 disorder: Status: Acute Code(s): F31.9 - Bipolar disorder, unspecified (2) PTSD (post-traumatic stress disorder): Status: Acute Code(s): F43.10 - Post-traumatic stress disorder, unspecified (3) HIV (human immunodeficiency virus infection): Status: Acute Code(s): Z21 - Asymptomatic human immunodeficiency virus [HIV] infection status (4) Homelessness: Status: Acute Code(s): Z59.00 - Homelessness unspecified Plan Patient is a 34 year old male with hx of bipolar disorder and PTSD presented ER due to suicidal ideation secondary being off his medications for about 1 week. Plan: CV 15 minute safety checks Continue home medications Obtain collateral Encourage groups Referral to outpatient psychiatric providers Discharge planning 08/26: Pt reports feeling better since restarting his home medications. pt stated, I'm not feeling depressed anymore. I'm just anxious. I feel like the medications kicked in . denies SI/HI/VH/AH. Encouraged to attend groups. Per nursing, slept 5 hours last night. Continue current tx plan. 08/27: Pt continues to report feeling good ; he reports sleeping well last night. denies SI/HI/VH/AH. Pt reports he would like to be discharge on Saturday. If pt continues to improve will discharge; pt aware. Continue current tx plan. 08/28: increase abilify to 20 mg daily for ongoing paranoia. increase zoloft to 150 mg daily for social anxiety. improved mood from admission. planning to discharge saturday. 08/29: Continue current management and treatment plan. Reason for continued inpatient stay Substantial Risk for: harm to self and rapid decompensation Time Spent With Patient Time: Total time managing care of this patient today ____ minutes.
[2024-08-29] MEDS: Hydrocortisone 1 % Cream 28.35 GM TUBE 1 APPL TOPICAL (16:38)
[2024-08-29 19:23] LABS: HIV RNA PCR Qn Copies 6650 copies/mL (NOT DETECTED); HIV RNA PCR Qn Log Copies 3.82 (NOT DETECTED)
[2024-08-29 20:00] VITALS: BP 141/83; PULSE 99; RESP 16; TEMP 36.5; O2SAT 99
[2024-08-29 20:23] LABS: TS Negative Control Passed; TS Panel A 0; TS Panel B 1; TS Positive Control Passed; TSpotTB Negative (Negative)
[2024-08-29] MEDS: chlorproMAZINE HCl 25 MG TABLET PO (21:49)
[2024-08-29] MEDS: traZODone HCL 50 MG TABLET PO (21:49)
[2024-08-30] MEDS: traZODone HCL 50 MG TABLET PO (02:48)
[2024-08-30] MEDS: Hydrocortisone 1 % Cream 28.35 GM TUBE 1 APPL TOPICAL (07:26)
[2024-08-30 08:00] VITALS: BP 147/74; PULSE 97; RESP 18; TEMP 36.5; O2SAT 98
[2024-08-30] MEDS: Sertraline HCL 50 MG TABLET 150 MG PO (08:40)
[2024-08-30] MEDS: ARIPiprazole 20 MG TABLET PO (08:40)
[2024-08-30] MEDS: Bictegrav/Emtricit/Tenofov Ala TABLET 1 TAB PO (08:40)
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
[2024-08-30] MEDS: OLANZapine 5 MG TABLET PO ×2 (13:34→20:43)
[2024-08-30 20:00] VITALS: BP 136/76; PULSE 97; RESP 16; TEMP 36.6; O2SAT 99
[2024-08-30] MEDS: OXcarbazepine 300 MG TABLET PO (22:16)
[2024-08-30] MEDS: traZODone HCL 100 MG TABLET PO (22:34)
[2024-08-31] MEDS: Hydrocortisone 1 % Cream 28.35 GM TUBE 1 APPL TOPICAL (06:06)
[2024-08-31 07:25] VITALS: BP 124/72; PULSE 70; RESP 16; TEMP 36.6; O2SAT 99
[2024-08-31] MEDS: Bictegrav/Emtricit/Tenofov Ala TABLET 1 TAB PO (08:33)
[2024-08-31] MEDS: OXcarbazepine 300 MG TABLET PO (08:34)
[2024-08-31] MEDS: Sertraline HCL 50 MG TABLET 150 MG PO (08:34)
[2024-08-31] MEDS: ARIPiprazole 20 MG TABLET PO (08:35)
--- NOTE | 2024-08-31 09:33 | PM.PSYDC ---
DS: Providers Provider Date of Service: 08/31/24 Date of admission: 08/25/24 14:17 Date of discharge: 08/31/24 Primary care physician: Pilar Physician Admitting clinician: Beena Peace Attending physician on admission: Edy Sandoval Consults: 08/25/24 14:35 Consult to Hospitalist Routine Comment: Consulting Provider: [facility] Hospitalists Reason For Exam: OSH admission 08/25/24 16:29 Consult to Infectious Diseases Routine Consulting Provider: [facility] Reason for consultation: HIV+ Attending physician on discharge: Edy Sandoval Discharging clinician: Beena Peace DS: Diagnosis Discharge Diagnosis (1) Bipolar 1 disorder: Status: Acute (2) PTSD (post-traumatic stress disorder): Status: Acute (3) HIV (human immunodeficiency virus infection): Status: Acute (4) Homelessness: Status: Acute DS: Medications Discharge Medications Home Medications: Home Medications ?Medication ?Instructions ?Recorded ?Confirmed aripiprazole 15 mg tablet (Abilify) 15 mg PO DAILY 08/25/24 08/25/24 sertraline 100 mg tablet 100 mg PO DAILY 08/25/24 08/25/24 trazodone 50 mg tablet 50 mg PO BEDTIME 08/25/24 08/25/24 Mental Status Exam Mental Status Exam Narrative: Pt is alert and oriented; behavior is cooperative and calm; dressed in casual attire; mood is described as good ; eye contact appropriate; Speech is normal rate, volume and not pressured; thought process is organized; Thought content is on discharge; denies SI/HI/VH/AH. Data Data Completed and Pending Completed studies during hospitalization [Text1]: 08/26/24 08/27/24 08/27/24 07:47 08:00 08:01 WBC 3.8 L RBC 4.32 L Hgb 13.8 L Hct 39.3 L MCV 91.0 MCH 31.9 MCHC 35.1 RDW 12.6 Plt Count 167 MPV 11.5 Immature Gran % (Auto) 0.5 H Neut % (Auto) 44.3 L Lymph % (Auto) 45.6 H Churchill % (Auto) 8.5 Eos % (Auto) 0.8 Baso % (Auto) 0.3 Lymph # (Auto) 1.7 Churchill # (Auto) 0.3 Eos # (Auto) 0.0 Baso # (Auto) 0.0 Abs Immat Gran (auto) 0.02 Absolute Neuts (auto) 1.7 L Absolute Nucleated RBC 0.000 Nucleated RBC % (auto) 0.0 G6PD Pending Sodium 138 Potassium 4.4 Chloride 106 Carbon Dioxide 25 Anion Gap 11 L BUN 16 Creatinine 1.07 Estim Creat Clear Calc 112.0 Estimated GFR > 60 Random Glucose 105 Estimat Average Glucose 85 Hemoglobin A1c % 4.6 Calcium 10.1 Total Bilirubin 0.6 Direct Bilirubin 0.2 AST 21 ALT 17 Alkaline Phosphatase 51 Total Protein 7.5 Albumin 4.3 Triglycerides 187 H Cholesterol 143 LDL Cholesterol, Calc 69 HDL Cholesterol 37 L Folate 6.7 TSH 0.35 Free T4 0.89 Lymphocyte Subset Cmmnt Pending Total Lymphocytes Pending % CD3 Cells Pending Absolute CD3 Count Pending % CD4 Cells Pending Absolute CD4 Count Pending CD4/CD8 Ratio Pending % CD8 Cells Pending Absolute CD8 Count Pending RPR Pending T.pallidum Particle Agg Pending T.pallidum Ab (EIA) Reactive A Hepatitis A IgG Ab Nonreactive Hep Bs Antigen Negative Hep Bs Antibody REACTIVE Hepatitis C Ab (EIA) Reactive H Hep C Viral Load Pending Hep C Viral Load Log Pending HIV-1 RNA copies/mL 6650 H HIV-1 RNA logcopies/mL 3.82 H Toxoplasma IgG Ab <7.20 Toxoplasma IgM Ab <8.00 Toxoplasma Ab Interp SEE NOTE TB Test (T-Spot) Com Negative TB Test Nil Control Passed TB Test Panel A 0 TB Test Panel B 1 TB Test Positive Cntrl Passed DS: Summary Hospital Course Hospital Course: Patient is a 34 year old male with hx of bipolar disorder and PTSD presented ER due to suicidal ideation secondary being off his medications for about 1 week. Per crisis report, patient reports he has been very anxious and paranoid and has not been sleeping due to not having his medications for 1 week. He reports he began to have suicidal ideation last night with plan to overdose on fentanyl. Utox negative for all substances. Patient stated, when I am off my medications I have thoughts of hurting myself. I have not slept in a week. I feel like I am going in a very dark place . History of overdosing. History of attending substance abuse programs; history of cocaine use. During admission assessment, patient presents alert and oriented x3. Calm and cooperative. Patient reports feeling depressed ; patient stated, I just moved here 2 days ago from [place]. I'm originally from here and I wanted to get reconnected with family. I'm feeling suicidal because I can only do this so many times, where I go off my medications and I don't feel good. Maybe I'm better off not here . denies HI/VH/AH. He reports he does not have outpatient psychiatric providers at this time. Patient reports suicidal ideation with a plan to overdose on fentanyl. Plan: CV 15 minute safety checks Continue home medications Obtain collateral Encourage groups Referral to outpatient psychiatric providers Discharge planning Pt reports feeling better since restarting his home medications. pt stated, I'm not feeling depressed anymore. I'm just anxious. I feel like the medications kicked in . denies SI/HI/VH/AH. Encouraged to attend groups. Per nursing, slept 5 hours last night. Continue current tx plan. Pt continues to report feeling good ; he reports sleeping well last night. denies SI/HI/VH/AH. Pt reports he would like to be discharge on Saturday. If pt continues to improve will discharge; pt aware. Continue current tx plan. increase abilify to 20 mg daily for ongoing paranoia. increase zoloft to 150 mg daily for social anxiety. improved mood from admission. planning to discharge saturday. Trial of Trileptal 300 mg BID. Continue other management and treatment plan the same. Patient reports feeling good and ready to leave. denies SI/HI/VH/AH. Pt denies any side effects from medications. Pt reports he plans on following up with outpatient providers. Status at Discharge Cognitive/behavioral status at discharge: Patient has insight and demonstrates good judgment in terms of wanting to pursue treatment. Patient has a safety plan that includes presenting to the closest ER or calling 911 if feeling unsafe. Functional status at discharge: independent ambulation Overall status at discharge: patient is back to baseline Time Spent with Patient Time attestation: Total time managing care of this patient today _20___ minutes. Time spent: Less than 30 minutes Discharge Plan Discharge Anticipated Discharge Date/Time: 08/31/24 11:30 Patient Disposition: Home, Self-Care Discharge Diagnosis: Bipolar d/o, PTSD Referrals: Lucretia ([facility]) [Other] - 1 Week Referral Note: *Please follow up with Lucretia at the [facility] regarding primary care and other resources and supports. Meron Rodrigez (Therapy) [Other] - 09/02/24 12:00 pm Referral Note: IN OFFICE APPOINTMENT -Please arrive 15 minutes early to your appointment. Please also bring your insurance card with you to the appointment. Benjamin Parks (Psychiatry) [Other] - 10/01/24 9:40 am Referral Note: TELEHEALTH APPOINTMENT -Psychiatric Evaluation [facility] [facility] (Psychiatry) [Other] - 10/29/24 10:00 am Referral Note: TELEHEALTH APPOINTMENT -Medication Management Discharge Medications: New Biktarvy 50-200-25 mg Tablet 1 tab PO DAILY 30 Days Qty: 30 0RF aripiprazole [Abilify] 20 mg Tablet 20 mg PO DAILY 30 Days Qty: 30 0RF chlorpromazine 25 mg Tablet 25 mg PO BID PRN (Reason: Anxiety) 30 Days Qty: 30 0RF oxcarbazepine 300 mg Tablet 300 mg PO BID 30 Days Qty: 60 0RF trazodone 100 mg Tablet 100 mg PO BEDTIME 30 Days Qty: 30 0RF sertraline 150 mg capsule 150 mg PO DAILY 30 Days Qty: 30 0RF Discontinued trazodone 50 mg Tablet 50 mg PO BEDTIME sertraline 100 mg Tablet 100 mg PO DAILY aripiprazole [Abilify] 15 mg Tablet 15 mg PO DAILY Discharge Orders: Discharge Order (Routine); Ordered 08/31/24 Ordered By: Beena Peace Diet: Regular diet Activity on Discharge: As tolerated Stand Alone Forms: Patient Portal Discharge page, Community Support Print Language: Angolan Care Plan Goals: Maintain mood and safe behaviors Take medications as prescribed Practice coping skills Continue with outpatient providers and reach out to them as needed Health Concerns: Mood stability and behaviors Plan of Treatment: Follow up with your PCP, psychiatric provider and other outpatient providers regarding above concerns Take medications as prescribed Assessment: Patient has insight and demonstrates good judgment in terms of wanting to pursue treatment. Patient has a safety plan that includes presenting to the closest ER or calling 911 if feeling unsafe. Discharge Date/Time: 08/31/24 11:32
--- NOTE | 2024-08-31 12:12 | PC.NURSE ---
Patient easily engaged. Reports mood has improved. Reports feeling anxious regarding discharge. Denies depression or sadness. Denies SI/HI plan or intent. Denies self harming ideation. Denies perceptual disturbances, no overt psychosis or expressed delusions. Discharge paperwork reviewed with patient, reports understanding. Discharge medications reviewed with patient, reports understanding. Follow up appointments reviewed with patient reports understanding. Crisis information and resource book provided to patient on discharge. All belongings taken with patient.
[2024-08-31 12:58] LABS: HCV Log PCR <1.18 NOT DETECTED Log IU/mL (NOT DETECTED); HepC Viral Load <15 NOT DETECTED IU/mL (NOT DETECTED)
[2024-08-31 22:09] LABS: Glucose-6-Phosphate Dehydrogen 2.7 U/g Hgb (7.0-20.5)
[2024-09-02 14:03] LABS: Absolute CD3 Count 1471 cells/uL (840-3060); Absolute CD4 Count 696 cells/uL (490-1740); Absolute CD8 Count 746 cells/uL (180-1170); Absolute Lymphocytes 1739 cells/uL (850-3900); CD4 CD8 Ratio 0.93 (0.86-5.00); Percent CD3 Cells 85 % (57-85); Percent CD4 Cells 40 % (30-61); Percent CD8 Cells 43 % (12-42)
[2024-09-02 14:52] LABS: RPR Quantitative Reactive 1:4 (Nonreactive)
[2024-09-02 14:53] LABS: T.Pallidum Particle Agg Test Reactive (Nonreactive)
== END 2024-08-31 11:32 | disposition home or self-care (01) | DRG 753 ==
PROVIDERS: Internal Medicine; Admitting Provider Psychiatry & Neurology Psychiatry; Responsible Provider Registered Nurse; Visit Provider Psychiatry & Neurology Psychiatry
DX: F31.9 Bipolar disorder, unspecified (principal); Z91.148 Patient's other noncompliance with medication regimen for other reason; R45.851 Suicidal ideations; R55 Syncope and collapse; F17.210 Nicotine dependence, cigarettes, uncomplicated; F43.10 Post-traumatic stress disorder, unspecified; Z21 Asymptomatic human immunodeficiency virus [HIV] infection status; Z59.02 Unsheltered homelessness; Z71.6 Tobacco abuse counseling; Z79.899 Other long term (current) drug therapy
CPT/HCPCS: 36415; 80048; 80061; 80076; 82746; 82955; 83036; 84439; 84443; 85025; 86359; 86360; 86481; 86592; 86706; 86708; 86777; 86778; 86780; 86803; 87340; 87522; 87536; 93005

== ENCOUNTER 2024-08-25 14:17 | Outpatient (BNV) | payer MEDICAID, SELFPAY | END 2024-08-26 09:07 | PROVIDERS: Admitting Provider Psychiatry & Neurology Psychiatry; Responsible Provider Registered Nurse; Visit Provider Internal Medicine | DX: R94.31 Abnormal electrocardiogram [ECG] [EKG] (principal); Z13.6 Encounter for screening for cardiovascular disorders | CPT/HCPCS: 93010 ==

== ENCOUNTER → 2024-08-25 14:17 | Outpatient (BNV) | payer MEDICAID, SELFPAY | PROVIDERS: Admitting Provider Psychiatry & Neurology Psychiatry; Responsible Provider Registered Nurse; Visit Provider Internal Medicine | DX: Z21 Asymptomatic human immunodeficiency virus [HIV] infection status (principal) | CPT/HCPCS: 99222 ==

== ENCOUNTER → 2024-08-25 14:17 | Outpatient (BNV) | payer OTHER, SELFPAY | PROVIDERS: Admitting Provider Psychiatry & Neurology Psychiatry; Responsible Provider Registered Nurse; Visit Provider Registered Nurse | DX: F31.4 Bipolar disorder, current episode depressed, severe, without psychotic features (principal); F43.11 Post-traumatic stress disorder, acute; Z21 Asymptomatic human immunodeficiency virus [HIV] infection status; Z59.00 Homelessness unspecified | CPT/HCPCS: 99231; 99232 ==

== ENCOUNTER → 2024-08-25 14:17 | Outpatient (BNV) | payer OTHER, SELFPAY | PROVIDERS: Admitting Provider Psychiatry & Neurology Psychiatry; Responsible Provider Registered Nurse; Visit Provider Nurse Practitioner Family | DX: F31.9 Bipolar disorder, unspecified (principal) | CPT/HCPCS: 99221; 99222 ==

== ENCOUNTER 2024-12-24 14:45 | Inpatient (IN) | payer MEDICAID, SELFPAY ==
--- OUTSIDE RECORDS SUMMARY | 2024-12-21 15:40 | XMS_ITS | Encounter Summary ---
Author Organization [facility] Address [address] [place] [address] Care Team Providers Care Satellite Project Site Monitor Name Role Phone Physician, No Pcp Primary Care Provider Unavaila ble Reason for Visit * Reason Comments Cough Blood in Urine Encounter Details Date Type Department Care Team (Late st Contact Info) Description 12/21/2024 3:40 PM EDT - 12/21/2024 5:[address] [facility] Emergency [address] [place] [address] Luis Means MD [address] [place] [address] Rachelle Leyva MD [address] [place] [address] Acute non-recurrent frontal sinusitis (Primary Dx) Discharge Disposition: Home or Self Care Social History Tobacco Use Types Packs/Day Years Used Date Smoking Tobacco: Every Day Cigarettes Sex and Gender Information Value Date Recorded Sex Assigned at Not on file Legal Sex Male 4:01 AM EST Gender Identity Not on file Sexual Orientation Not on file documented as of this encounter Last Filed Vital Signs Vital Sign Reading Time Taken Comments Blood Pressure 140/89 12/21/2024 1:52 PM EDT Pulse 110 12/21/2024 1:52 PM EDT Temperature 37.2 C (99 F) 12/21/2024 1:52 PM EDT Respiratory Rate 16 12/21/2024 1:52 PM EDT Oxygen Saturation 98% 12/21/2024 1:52 PM EDT Inhaled Oxygen Concentration - - Weight 93 kg (205 lb) 12/21/2024 1:52 PM EDT Height 180.3 cm (5' 11 ) 12/21/2024 1:52 PM EDT Body Mass Index 28.59 12/21/2024 1:52 PM EDT documented in this encounter Functional Status * Calculated C-SSRS Risk Score (Lifetime/Recent) Answer Date of Assessment Author No Risk Indicated 12/21/2024 1:51 PM EDT Radha Hernandez, RN * [place] Suicide Severity Rating Scale (Screener/Recent Self-Report) Question Answer Date of Assessment Author 1. Wish to be (Past 1 Month) No 025 1:51 PM EDT Radha Hernandez, YVAN 2. Non-Specific Active Suici nette Thoughts (Past 1 Month) No 12/21/2024 1:51 PM EDT Radha Hernandez RN 6. Suicidal Behavior (Lifetime) No 1:51 PM EDT Radha Hernandez, YVAN documented as of this encounter Discharge Instructions * Discharge Instructions* Rachelle Leyva MD - 12/21/2024 4:59 PM EDT Today you were evaluated for fever with concern for acute sinusitis. You do have a small amount of blood in your urine and need to be reevaluated by primary care doctor for recheck to ensure clearance of this when your symptoms improve. Please take antibiotics as prescribed, Tylenol and Motrin for pain and fever. Return to the hospital for worsening of symptoms or if your fever does not resolve in 48 hours. * Attachments The following attachments cannot be sent through Care Everywhere. * Sinusitis: Acute (Armenian) documented in this encounter Medications at Time of Discharge acetaminophen (TYLENOL) 500 mg tablet Take 1 tablet (500 mg total) by mouth every 6 (six) hours if needed for mild pain for up to 7 days. 28 each 12/21/2024 12/28/2024 amoxicillin-clavu lanate (AUGMENTIN) 875-125 mg per tablet Take 1 tablet by mouth every 12 (twelve) hours for 7 days. 14 tablet 12/21/2024 12/28/2024 ibuprofen (ADVIL,MOTRIN) 400 mg tablet Take 1 tablet (400 mg total) by mouth every 6 (six) hours if needed for mild pain for up to 10 days. 30 tablet 12/21/2024 12/31/2024 documented as of this encounter Ordered Prescriptions Prescription Sig Dispense Quantity Refills Last Filled Start Date End Date ibuprofen (ADVIL,MOTRIN) 400 mg tablet Take 1 tablet (400 mg total) by mouth every 6 (six) hours if needed for mild pain for up to 10 days. 30 tablet 12/21/2024 12/31/2024 acetaminophen (TYLENOL) 500 mg tablet Take 1 tablet (500 mg total) by mouth every 6 (six) hours if needed for mild pain for up to 7 days. 28 each 12/21/2024 12/28/2024 amoxicillin-clavul anate (AUGMENTIN) 875-125 mg per tablet Take 1 tablet by mouth every 12 (twelve) hours for 7 days. 14 tablet 12/21/2024 12/28/2024 documented in this encounter Discharge Disposition Disposition Code Departure Means Destination Comment s Home or Self Care Patient eloped documented in this encounter Progress Notes * Radha Hernandez RN - 12/21/2024 1:45 PM EDT Pt brought in by ems from home with c/o cough cold congestion x 2 weeks. Pt also reports hematuria since this morning . Denies any pain . * Rachelle Leyva MD - 12/21/2024 1:42 PM EDT Images from the original note were not included. [facility] EMERGENCY EMERGENCY DEPARTMENT ENCOUNTER Patient: Ej Luna MR# [id number] Time of Service: 12/21/2024 3:40 PM History Chief Complaint Patient presents with Cough Blood in Urine Ej Luna is a 34 y.o. male with history of HIV who presents to the ED with chief complaint Cough and Blood in Urine . Patient states for the last 1.5 weeks he has been having fever. Describes having headache, right-sided facial swelling, pressure on the face, discharge from the nose. Describes having green discharge with odor and blood. He denies having nausea, vomiting, diarrhea. Has been drinking garlic juice to try to help his symptoms. He has not taken Tylenol or ibuprofen. Today he noted what he thought was blood in the urine which then cleared. He denies burning with urination. He has had trouble keeping up with his fluids in the setting of fever. He had some discomfort of his left back today as well. Patient has had HIV for 10 years but recently started on Biktarvy. He does not know his viral load or CD4 count. ROS Negative except for HPI. Allergies: Aspirin Medical History[1] Problem List[2] Surgical History[3] Family History[4] Social History[5] Physical Exam Vitals: 12/21/24 1352 BP: (!) 140/89 Pulse: 110 Resp: 16 Temp: 37.2 ??C (99 ??F) TempSrc: Oral SpO2: 98% Weight: 93 kg (205 lb) Height: 1.803 m (71 ) General Appearance: No acute distress Skin: Dry Eyes: EOMI, no scleral icterus HENT: Normocephalic, mild right-sided facial swelling noted, moist mucous membranes Neck: Supple, normal range of motion Cardiovascular: Tachycardic rate and regular rhythm, no murmur, 2+ radial pulses Respiratory: Lungs clear to auscultation bilaterally, no respiratory distress, no wheezing or rhonchi Abdomen: Soft, non-tender, non-distended; right CVA tenderness MSK: No edema or tenderness Neurologic: Awake, alert, no obvious deficits, moving all extremities Psychiatric: Appropriate, cooperative Results Results for orders placed or performed during the hospital encounter of 12/21/24 [id number], RSV, Influenza A and B qualitative RT-PCR Collection Time: 12/21/24 3:58 PM Specimen: Nares; Swab Result Value Ref Range Influenza A PCR Not Detected Not Detected Influenza B PCR Not Detected Not Detected RSV PCR Not Detected Not Detected SARS COV-2 Not Detected Not Detected Comprehensive metabolic panel Collection Time: 12/21/24 3:58 PM Result Value Ref Range Sodium 136 133 - 145 mmol/L Potassium 4.1 3.5 - 5.5 mmol/L Chloride 103 96 - 110 mmol/L CO2 29 21 - 32 mmol/L Anion Gap 4 3 - 11 Glucose 128 (H) 70 - 100 mg/dL BUN 10 5 - 25 mg/dL Creatinine 1.26 0.70 - 1.30 mg/dL eGFR 77 >=60 mL/min/1.73m2 BUN/Creatinine Ratio 7.9 Calcium 9.8 8.5 - 10.5 mg/dL AST (SGOT) 15 10 - 42 unit/L ALT (SGPT) 21 10 - 60 unit/L Alkaline Phosphatase 101 42 - 121 unit/L Total Protein 8.2 (H) 6.0 - 8.0 g/dL Albumin 3.9 3.2 - 5.0 g/dL Total Bilirubin 0.7 0.0 - 1.4 mg/dL CBC auto differential Collection Time: 12/21/24 3:58 PM Result Value Ref Range WBC 8.7 4.8 - 10.8 K/mcL RBC 4.50 4.50 - 5.50 M/mcL Hemoglobin 14.3 13.5 - 17.5 g/dL Hematocrit 43.2 42.0 - 54.0 % MCV 95.8 79.0 - 98.0 FL MCH 31.7 27.0 - 32.0 pcg MCHC 33.1 32.0 - 37.0 g/dL RDW 12.0 11.0 - 15.0 % Platelets 218 130 - 400 K/mcL MPV 11.1 (H) 7.0 - 11.0 FL NRBC 0.0 <1.0 % NRBC Absolute 0.00 <0.10 K/mcL Neutrophils Relative 62.4 % Lymphocytes Relative 30.4 % Monocytes Relative 6.3 % Eosinophils Relative 0.5 % Basophils Relative 0.2 % Immature Granulocytes Relative 0.2 % Neutrophils Absolute 5.41 1.50 - 7.00 K/mcL Lymphocytes Absolute 2.64 1.00 - 5.00 K/mcL Monocytes Absolute 0.55 0.20 - 1.00 K/mcL Eosinophils Absolute 0.04 0.00 - 0.50 K/mcL Basophils Absolute 0.02 0.00 - 0.20 K/mcL Immature Granulocytes Absolute 0.02 0.00 - 0.03 K/mcL Urinalysis with reflex microscopic and culture Collection Time: 12/21/24 4:01 PM Result Value Ref Range Specific [place] Urine 1.039 (H) 1.003 - 1.030 pH, Urine 6.0 5.0 - 8.0 pH Leukocytes, Urine Trace (A) Negative Nitrite, Urine Negative Negative Protein, Urine 300 (A) <=Trace mg/dL Glucose, Urine Negative Negative mg/dL Ketones, Urine Trace (A) Negative mg/dL Urobilinogen, Urine 1.0 0.2 - 1.0 mg/dL Bilirubin, Urine Negative Negative Blood, Urine Negative Negative RBC, Urine 4.4 (H) 0 - 4 /HPF WBC, Urine 2.5 0 - 4 /HPF Squamous Epithelial, Urine 10 0 - 60 /LPF Bacteria, Urine Negative Negative /HPF Hyaline Casts, Urine 1.2 0 - 3 /LPF Lui urine culture tube Collection Time: 12/21/24 4:01 PM Result Value Ref Range Extra Tube Hold for add-ons. No orders to display Procedures Medical Decision Making 34-year-old male presenting due to fever and facial pressure in the setting of HIV with unknown [id number]. Patient noted to be tachycardic with low-grade fever upon arrival. Plan for labs and UA. Will obtain chest x-ray. Concern for bacterial sinusitis and will require antibiotics given immunocompromise and 1.5 weeks of fever. Patient's labs without significant abnormalities, negative for COVID and flu. UA with small amount of red blood cells, no signs of UTI on UA. Patient did not go for chest x-ray as he left prior to the completion of his evaluation. I was unable to discuss my final concerns with him. I did send Tylenol, Motrin, and Augmentin to his pharmacy for treatment due to concern for bacterial sinusitis. Labs ordered in ED independently reviewed by me. My interpretation of the labs as above Medications Administered Medications acetaminophen (TYLENOL) tablet 650 mg (650 mg oral Given 12/21/24 1406) ED Course as of 12/21/242242 Mon Dec 21, 2024 1700 Patient has listed allergy to aspirin which he states is due to G6PD deficiency, but able to take NSAIDs per his report. [AM] ED Course User Index [AM] Rachelle Leyva MD Clinical Impressions as of 12/21/242242 Acute non-recurrent frontal sinusitis Chronic conditions that impact care: HIV Prescription management: In addition to any applicable prescriptions, the patient was counseled by me regarding [id number] medications that can be used at home. Discharge Medication List as of 12/21/2024 5:27 PM START taking these medications Details acetaminophen (TYLENOL) 500 mg tablet Take 1 tablet (500 mg total) by mouth every 6 (six) hours if needed for mild pain for up to 7 days., Starting 12/21/2024, Until 12/28/2024 at 2359, Normal amoxicillin-clavulanate (AUGMENTIN) 875-125 mg per tablet Take 1 tablet by mouth every 12 (twelve) hours for 7 days., Starting 12/21/2024, Until 12/28/2024, Normal ibuprofen (ADVIL,MOTRIN) 400 mg tablet Take 1 tablet (400 mg total) by mouth every 6 (six) hours ifneeded for mild pain for up to 10 days., Starting 12/21/2024, Until Miryam 12/31/2024 at 2359, Normal Disposition: Left prior to treatment complete CLINICAL IMPRESSION: 1. Acute non-recurrent frontal sinusitis 12/21/2024 MD Rachelle Roy MD 12/21/24 1646 Rachelle Leyva MD 12/21/24 1658 [1] Past Medical History: Diagnosis Date Anxiety Bipolar 1 disorder ([facility] V24, [facility] V28) Depression HIV (human immunodeficiency virus infection) ([facility] V24, [facility] V28) [2] Patient Active Problem List Diagnosis HIV (human immunodeficiency virus infection) ([facility] V24, [facility] V28) [3] No past surgical history on file. [4] No family history on file. [5] Social History Tobacco Use Smoking status: Every Day Types: Cigarettes Rachelle Leyva MD 12/21/24 9255 documented in this encounter Plan of Treatment Not on file documented as of this encounter Procedures Procedure Name Priority Date/Time Associated Diagnosis Comments URINALYSIS WITH REFLEX MICROSCOPIC AND CULTURE STAT 12/21/2024 4:01 PM EDT LUI URINE CULTURE TUBE STAT 12/21/2024 4:01 PM EDT URINALYSIS WITH REFLEX MICROSCOPIC AND CULTURE STAT 12/21/2024 4:01 PM EDT CULTURE URINE STAT 12/21/2024 4:01 PM EDT [id number], RSV, FLU A AND B QUALITATIVE RT-PCR, INTERNAL LAB STAT 12/21/2024 3:58 PM EDT CBC WITH AUTO DIFFERENTIAL STAT 12/21/2024 3:58 PM EDT CBC AND DIFFERENTIAL STAT 12/21/2024 3:58 PM EDT COMPREHENSIVE METABOLIC PANEL STAT 12/21/2024 3:58 PM EDT documented in this encounter Results * Culture urine (12/21/2024 4:01 PM EDT) [facility] Culture, Urine No growth 12/23/2024 8:25 AM EDT [facility] Urine Urine specimen obtained by clean catch procedure / Unknown Non-blood Collection / Unknown 12/21/2024 4:01 PM EDT 12/21/2024 4:42 PM EDT Nicol [facility] LAB MICROBIOLOGY - GENER AL ORDERABLES Final Result Performing Organization Address [facility]/ZIP Co de Phone Number [facility] [address] [place] [address], [place] [phone] * Lui urine culture tube (12/21/2024 4:01 PM EDT) [facility] Extra Tube Hold for add-ons. 12/21/2024 6:01 PM EDT [facility] Comment:Auto resulted. Urine Urine specimen obtained by clean catch procedure / Unknown Non-blood Collection / Unknown 12/21/2024 4:01 PM EDT 12/21/2024 4:19 PM EDT Nicol [facility] URINE ORDERABLES Fin al Result Performing Organization Address City/[facility]/ZIP Co de Phone Number [facility] [address] [place] [address], [place] [phone] * (ABNORMAL) Urinalysis with reflex microscopic and culture (12/21/2024 4:01 PM EDT) Specific [place] Urine 1.039(H) 1.003 - 1.030 LAB URINALYSIS - AUTOMATED METHOD 12/21/2024 4:42 PM [facility] pH, Urine 6.0 5.0 - 8.0 pH LAB URINALYSIS - AUTOMATED METHOD 12/21/2024 4:42 PM [facility] Leukocytes, Urine Trace(A) Negative LAB URINALYSIS - AUTOMATED METHOD 12/21/2024 4:42 PM [facility] Nitrite, Urine Negative Negative LAB URINALYSIS - AUTOMATED METHOD 12/21/2024 4:42 PM [facility] Protein, Urine 300(A) <=Trace mg/dL LAB URINALYSIS - AUTOMATED METHOD 12/21/2024 4:42 PM [facility] Glucose, Urine Negative Negative mg/dL LAB URINALYSIS - AUTOMATED METHOD 12/21/2024 4:42 PM [facility] Ketones, Urine Trace(A) Negative mg/dL LAB URINALYSIS - AUTOMATED METHOD 12/21/2024 4:42 PM [facility] Urobilinogen, Urine 1.0 0.2 - 1.0 mg/dL LAB URINALYSIS - AUTOMATED METHOD 12/21/2024 4:42 PM [facility] Bilirubin, Urine Negative Negative LAB URINALYSIS - AUTOMATED METHOD 12/21/2024 4:42 PM [facility] Blood, Urine Negative Negative LAB URINALYSIS - AUTOMATED METHOD 12/21/2024 4:42 PM [facility] RBC, Urine 4.4(H) 0 - 4 /HPF LAB URINALYSIS - AUTOMATED METHOD 12/21/2024 4:42 PM EDT [facility] WBC, Urine 2.5 0 - 4 /HPF LAB URINALYSIS - AUTOMATED METHOD 12/21/2024 4:42 PM EDT [facility] Squamous Epithelial, Urine 10 0 - 60 /LPF LAB URINALYSIS - AUTOMATED METHOD 12/21/2024 4:42 PM EDT [facility] Bacteria, Urine Negative Negative /HPF LAB URINALYSIS - AUTOMATED METHOD 12/21/2024 4:42 PM EDT [facility] Hyaline Casts, Urine 1.2 0 - 3 /LPF LAB URINALYSIS - AUTOMATED METHOD 12/21/2024 4:42 PM EDT [facility] Urine Urine specimen obtained by clean catch procedure / Unknown Non-blood Collection / Unknown 12/21/2024 4:01 PM EDT 12/21/2024 4:19 PM EDT Nicol [facility] LAB URINE ORDERABLES [facility] al Result [facility] [address] [place] [address], * [id number], RSV, Influenza A and B qualitative RT-PCR (12/21/2024 3:58 PM EDT) Influenza A PCR Not Detected Not Detected LAB MICROBIOLOGY METHOD 12/21/2024 4:59 PM EDT [facility] Influenza B PCR Not Detected Not Detected LAB MICROBIOLOGY METHOD 12/21/2024 4:59 PM EDT [facility] RSV PCR Not Detected Not Detected LAB MICROBIOLOGY METHOD 12/21/2024 4:59 PM EDT [facility] SARS COV-2 Not Detected Not Detected LAB MICROBIOLOGY METHOD 12/21/2024 4:59 PM EDT [facility] Swab Both anterior nares / Unknown Non-blood Collection / Unknown 12/21/2024 3:58 PM EDT 12/21/2024 4:16 PM EDT us Elsie Crawford MD LAB MICROBIOLOGY - GENERAL ORDER RENEA Final Result [facility] [address] [place] [address], [place] [phone] * (ABNORMAL) CBC auto differential (12/21/2024 3:58 PM EDT) WBC 8.7 4.8 - 10.8 K/mcL LAB HEMETOLOGY METHOD 12/21/2024 4:28 PM EDT [facility] RBC 4.50 4.50 - 5.50 M/mcL LAB HEMETOLOGY METHOD 12/21/2024 4:28 PM EDT [facility] Hemoglobin 14.3 13.5 - 17.5 g/dL LAB HEMETOLOGY METHOD 12/21/2024 4:28 PM EDT [facility] Hematocrit 43.2 42.0 - 54.0 % LAB HEMETOLOGY METHOD 12/21/2024 4:28 PM EDT [facility] MCV 95.8 79.0 - 98.0 FL LAB HEMETOLOGY METHOD 12/21/2024 4:28 PM EDT [facility] MCH 31.7 27.0 - 32.0 pcg LAB HEMETOLOGY METHOD 12/21/2024 4:28 PM EDT [facility] MCHC 33.1 32.0 - 37.0 g/dL LAB HEMETOLOGY METHOD 12/21/2024 4:28 PM EDT [facility] RDW 12.0 11.0 - 15.0 % LAB HEMETOLOGY METHOD 12/21/2024 4:28 PM EDT [facility] Platelets 218 130 - 400 K/mcL LAB HEMETOLOGY METHOD 12/21/2024 4:28 PM EDT [facility] MPV 11.1(H) 7.0 - 11.0 FL LAB HEMETOLOGY [facility] NRBC 0.0 <1.0 % LAB HEMETOLOGY METHOD 12/21/2024 4:28 PM [facility] NRBC Absolute 0.00 <0.10 K/mcL LAB HEMETOLOGY METHOD 12/21/2024 4:28 PM [facility] Neutrophils Relative 62.4 % LAB HEMETOLOGY METHOD 12/21/2024 4:28 PM [facility] Lymphocytes Relative 30.4 % LAB HEMETOLOGY METHOD 12/21/2024 4:28 PM [facility] Monocytes Relative 6.3 % LAB HEMETOLOGY METHOD 12/21/2024 4:28 PM [facility] Eosinophils Relative 0.5 % LAB HEMETOLOGY METHOD 12/21/2024 4:28 PM [facility] Basophils Relative 0.2 % LAB HEMETOLOGY METHOD 12/21/2024 4:28 PM [facility] Immature Granulocytes Relative 0.2 % LAB HEMETOLOGY METHOD 12/21/2024 4:28 PM [facility] Neutrophils Absolute 5.41 1.50 - 7.00 K/mcL LAB HEMETOLOGY METHOD [facility] Lymphocytes Absolute 2.64 1.00 - 5.00 K/mcL LAB HEMETOLOGY METHOD [facility]2024 [facility] Monocytes Absolute 0.55 0.20 - 1.00 K/mcL LAB HEMETOLOGY METHOD 12/21/2024 4:28 PM [facility] Eosinophils Absolute 0.04 0.00 - 0.50 K/mcL LAB HEMETOLOGY METHOD 12/21/2024 4:28 PM EDT [facility] Basophils Absolute 0.02 0.00 - 0.20 K/mcL LAB HEMETOLOGY METHOD 12/21/2024 4:28 PM EDT [facility] Immature Granulocytes Absolute 0.02 0.00 - 0.03 K/mcL LAB HEMETOLOGY METHOD 12/21/2024 4:28 PM EDT [facility] Blood Venous blood specimen / Unknown Venipuncture / Unknown 12/21/2024 3:58 PM EDT 12/21/2024 4:18 PM EDT us Elsie Crawford MD LAB BLOOD ORDERABLES Final Resul t [facility] [address] [place] [address], [place] [phone] * (ABNORMAL) Comprehensive metabolic panel (12/21/2024 3:58 PM EDT) Sodium 136 133 - 145 mmol/L LAB CHEMISTRY METHOD 12/21/2024 5:04 PM [facility] Potassium 4.1 3.5 - 5.5 mmol/L LAB CHEMISTRY METHOD 12/21/2024 5:04 PM [facility] Chloride 103 96 - 110 mmol/L LAB CHEMISTRY METHOD 12/21/2024 5:04 PM [facility] CO2 29 21 - 32 mmol/L LAB CHEMISTRY METHOD 12/21/2024 5:04 PM [facility] Anion Gap 4 3 - 11 LAB CHEMISTRY METHOD 12/21/2024 5:04 PM [facility] Glucose 128(H) 70 - 100 mg/dL LAB CHEMISTRY METHOD 12/21/2024 5:04 PM [facility] BUN 10 5 - 25 mg/dL LAB CHEMISTRY METHOD 12/21/2024 5:04 PM [facility] Creatinine 1.26 0.70 - 1.30 mg/dL LAB CHEMISTRY METHOD 12/21/2024 5:04 PM [facility] eGFR 77 >=60 mL/min/1. 73m2 LAB CHEMISTRY METHOD 12/21/2024 5:04 PM [facility] Comment:Calculation based on the Chronic Kidney Disease Epidemiology Collaboration (CKD-EPI) equation refit without adjustment for race. BUN/Creatinine Ratio 7.9 LAB CHEMISTRY METHOD 12/21/2024 5:04 PM [facility] Calcium 9.8 8.5 - 10.5 mg/dL LAB CHEMISTRY METHOD 12/21/2024 5:04 PM [facility] AST (SGOT) 15 10 - 42 unit/L LAB CHEMISTRY METHOD 12/21/2024 5:04 PM [facility] ALT (SGPT) 21 10 - 60 unit/L LAB CHEMISTRY METHOD 12/21/2024 5:04 PM [facility] Alkaline Phosphatase 101 42 - 121 unit/L LAB CHEMISTRY METHOD 12/21/2024 5:04 PM [facility] Total Protein 8.2(H) 6.0 - 8.0 g/dL LAB CHEMISTRY METHOD 12/21/2024 5:04 PM [facility] Albumin 3.9 3.2 - 5.0 g/dL LAB CHEMISTRY METHOD 12/21/2024 5:04 PM [facility] Total Bilirubin 0.7 0.0 - 1.4 mg/dL LAB CHEMISTRY METHOD 12/21/2024 5:04 PM [facility] Blood Venous blood specimen / Unknown Venipuncture / Unknown 12/21/2024 3:58 PM EDT 12/21/2024 4:18 PM EDT us Elsie Crawford MD LAB BLOOD ORDERABLES Final Resul t [facility] [address] [place] [address], documented in this encounter Visit Diagnoses Diagnosis Acute non-recurrent frontal sinusitis- Primary HIV (human immunodeficiency virus infection) ([facility] V24, [facility] V28) Human immunodeficiency virus [HIV] disease documented in this encounter Administered Medications Inactive Administered Medications - up to 3 most recent administrations Medication Order MAR Action Action Date Dose Rate Site acetaminophen (TYLENOL) tablet 650 mg 650 mg, oral, Once, On Sat12/21/24 at 1354, For 1 dose Given 12/21/2024 2:06 PM EDT 650 mg documented in this encounter Active and Recently Administered Medications Times are shown in EDT. Scheduled Medication Order 12/19/2024 12/20/2024 12/21/2024 acetaminophen (TYLENOL) tablet 650 mg (COMPLETED) 650 mg, oral, Once, On Sat12/21/24 at 1354, For 1 dose 1406 (Given - Provid er: Tk Cardoza RN) ibuprofen (ADVIL,MOTRIN) tablet 600 mg 600 mg, oral, Once, On Sat12/21/24 at 1643, For 1 dose, Administer with food or milk to decrease GI upset 1643 (Canceled Entry - Provider: Automatic Discharge Provider - Comment: Automatically canceled at discontinue of medication order) documented in this encounter Orders Medications Ordered That Leonard ht Not Have Been Administered Count Last Ordered Date First Ordered Date acetaminophen (TYLENOL) tablet 650 mg 1 ibuprofen (ADVIL,MOTRIN) tablet 600 mg 1 documented in this encounter Additional Health Concerns Infection Onset Date Last Indicated Resolved Time Respiratory Rule-Out 12/21/2024 12/21/2024 025 4:59 PM EDT COVID-19 Rule-Out 12/21/2024 12/21/2024 12/21/2024 4:59 PM EDT documented as of this encounter Care Teams Satellite Project Site Monitor Relationship Specialty Start Date End Date Physician, No Pcp PCP - General 08/23/24 documented as of this encounter
[2024-12-24 15:16] VITALS: BP 129/64; PULSE 106; RESP 18; TEMP 36.6; O2SAT 97
[2024-12-24 15:17] VITALS: BMI 29.3
[2024-12-24] MEDS: Milk of Magnesia 30 ML ORAL.SUSP PO (17:07)
[2024-12-24] MEDS: Nicotine 14 MG PATCH.TD24 TRANSDERMA (17:07)
--- NOTE | 2024-12-24 17:17 | PC.NURSE ---
Ej Agudelo was admitted to M3 at 1450 from [facility] ED on CV for treatment of mood disorder and stimulant use disorder ( cocaine.) He signed a 3 day notice on arrival to the unit. ? Pt reports he went to [facility] ED for c/o sinus pain. When he was not seen in what he considered a timely manner he threatened to overdose on tylenol. He says he had no intention of overdosing, he was just looking for a way to get his sinus pain addressed. On arrival to the unit he is calm, pleasant, cooperative and requesting discharge. I've been here before and that time I really needed it. This time I don't. Pt was able to identify stressors including housing insecurity, no electricity, and this brings up past trauma of being in foster care. Pt denies mood alteration and appears euthymic. He denies hallucinations and there is no overt psychosis noted. Thought Process is linear but pt lacks insight. He reports using cocaine intranasally as much as I can as often as I can. and smoking cigarettes. He denies ideation, plan or intent to harm self or others. Appetite is good with no recent wt loss. Sleep is poor but pt denies this is due to stimulants and believes he has sleep apnea. Focus is good. Tox Screen was not assessed other than bal which was negative and apap level which was negative. Medical issue is runny, stuffy nose with sinus pain which pt believes is a sinus infection for which he is requesting abx. He has a hosp consult pending. He is afebrile and VS are wl. Safety Checks are q 15 minutes.
--- OUTSIDE RECORDS SUMMARY | 2024-12-24 18:35 | XMS_ITS | Clinical Summary ---
Author Organization [facility] Address [address] [place] [address] Phone Care Team Providers Care Chenille Machine Operator Name Role Phone Physician, No Pcp Primary Care Provider Unavaila ble Allergies Active Allergy Reactions Criticality Noted Date Comments Aspirin Unknown 08/23/2024 Medications traZODone (DESYREL) 50 mg tablet Take 1 tablet (50 mg total) by mouth at bedtime. 30 each 1 08/23/2024 Active sertraline (ZOLOFT) 100 mg tablet Take 1 tablet (100 mg total) by mouth 1 (one) time each day. 30 each 1 08/23/2024 Active amoxicillin-clav ulanate (AUGMENTIN) 875-125 mg per tablet Take 1 tablet by mouth every 12 (twelve) hours for 7 days. 14 tablet 12/21/2024 Active acetaminophen (TYLENOL) 500 mg tablet Take 1 tablet (500 mg total) by mouth every 6 (six) hours if needed for mild pain for up to 7 days. 28 each 12/21/2024 5 Active ibuprofen (ADVIL,MOTRIN) 400 mg tablet Take 1 tablet (400 mg total) by mouth every 6 (six) hours if needed for mild pain for up to 10 days. 30 tablet 12/21/2024 Active Active Problems Problem Noted Date Diagnosed Date HIV (human immunodeficiency virus infection) ([facility] V24, [facility] V28) Encounters Date Type Department Care Team Description 12/21/2024 3:40 PM EDT - 12/21/2024 5:26 PM EDT Emergency [facility] Emergency [address] [place] [address] Luis Means MD Mogul, Ashley, MD Acute non-recurrent frontal sinusitis (Primary Dx) Discharge Disposition: Home or Self Care 09/28/2024 4:02 PM EDT - 09/28/2024 5:07 PM EDT Emergency [facility] Emergency [address] [place] [id number] Discharge Disposition: Home or Self Care from Last 3 Months Medical History Medical History Date Comments Depression Bipolar 1 disorder ([facility] V24, [facility] V28) Anxiety HIV (human immunodeficiency virus infection) ([facility] V24, [facility] V28) Social History Tobacco Use Types Packs/Day Years Used Date Smoking Tobacco: Every Day Cigarettes Tobacco Cessation:Ready to Q uit: Not Asked; Counseling Given: Not Answered Sex and Gender Information Value Date Recorded Sex Assigned at Not on file Legal Sex Male 4:01 AM EST Gender Identity Not on file Sexual Orientation Not on file Obstetrics History Last Filed Vital Signs Vital Sign Reading [...] Mass Index 28.59 12/21/2024 1:52 PM EDT Plan of Treatment Health Maintenance Due Date Last Done Comments Meningococcal ACWY Vaccine (1 - Risk 2-dose series) 01/04/1992 COVID-19 Vaccine (#1) 1995 Hepatitis A Vaccines (1 of 2 - Risk 2-dose series) 2009 Pneumococcal Vaccine: Pediatrics (0 to 5 Years) and At-Risk Patients (6 to 49 Years) (1 of 2 - PCV) 2009 DTaP,Tdap,and Td Vaccines (7 - Td or Tdap) 12/26/2010 12/26/2000, 01/01/1995, 08/31/1993, Additional history exists HPV Vaccines (1 - Risk 3-dose SCDM series) 2017 Depression Screening 03/04/2024 Cholesterol Screening (Lipid Panel) 08/24/2024 Hepatitis C Screening 08/24/2024 Social Influencers of Health Screening 08/24/2024 Influenza Vaccine (#1) 2024 RSV Immunization Adult Patients (1 - 1-dose 75+ series) 2065 HIB Vaccines Completed 09/01/1991, 1990 IPV Vaccines Completed 01/01/1995, 11/04, 09/01/1991, Additional history exists MMR Vaccines Completed 01/01/1995, 09/01/1991 Hepatitis B Vaccines Completed 01/16/2002, 02/27/2001, 12/26/2000 Meningococcal B Vaccine Aged Out No l onger eligible based on patient's age to complete this topic RSV Immunization Patients Under 20 months Aged Out No longer eligible based on patient's age to complete this topic Varicella Vaccines Aged Out No longer eligible based on patient's age to complete this topic Procedures Procedure Name Priority Date/Time Associated Diagnosis Comments LUI URINE CULTURE TUBE STAT 12/21/2024 4:01 PM EDT URINALYSIS WITH REFLEX MICROSCOPIC AND CULTURE STAT 12/21/2024 4:01 PM EDT URINALYSIS WITH REFLEX MICROSCOPIC AND CULTURE STAT 12/21/2024 4:01 PM EDT CULTURE URINE STAT 12/21/2024 4:01 PM EDT CBC WITH AUTO DIFFERENTIAL STAT 12/21/2024 3:58 PM EDT COMPREHENSIVE METABOLIC PANEL STAT 12/21/2024 3:58 PM EDT CBC AND DIFFERENTIAL STAT 12/21/2024 3:58 PM EDT [id number], RSV, FLU A AND B QUALITATIVE RT-PCR, INTERNAL LAB STAT 12/21/2024 3:58 PM EDT from Last 3 Months Results * (ABNORMAL) Urinalysis with reflex microscopic and culture (12/21/2024 4:01 PM EDT) Specific [place] Urine 1.039(H) 1.003 - 1.030 LAB URINALYSIS - AUTOMATED METHOD 12/21/2024 4:[address] [facility] pH, Urine 6.0 5.0 - 8.0 pH LAB URINALYSIS - AUTOMATED METHOD 12/21/2024 4:[address] [facility] Leukocytes, Urine Trace(A) Negative LAB URINALYSIS - AUTOMATED METHOD 12/21/2024 4:[address] [facility] Nitrite, Urine Negative Negative LAB URINALYSIS - AUTOMATED METHOD 12/21/2024 4:[address] [facility] Protein, Urine 300(A) <=Trace mg/dL LAB URINALYSIS - AUTOMATED METHOD 12/21/2024 4:[address] [facility] Glucose, Urine Negative Negative mg/dL LAB URINALYSIS - AUTOMATED METHOD 12/21/2024 4:[address] [facility] Ketones, Urine Trace(A) Negative mg/dL LAB URINALYSIS - AUTOMATED METHOD 12/21/2024 4:[address] [facility] Urobilinogen, Urine 1.0 0.2 - 1.0 mg/dL LAB URINALYSIS - AUTOMATED METHOD 12/21/2024 4:[address] [facility] Bilirubin, Urine Negative Negative LAB URINALYSIS - AUTOMATED METHOD 12/21/2024 4:[address] [facility] Blood, Urine Negative Negative LAB URINALYSIS - AUTOMATED METHOD 12/21/2024 4:[address] [facility] RBC, Urine 4.4(H) 0 - 4 /HPF LAB URINALYSIS - AUTOMATED METHOD 12/21/2024 4:[address] [facility] WBC, Urine 2.5 0 - 4 /HPF LAB URINALYSIS - AUTOMATED METHOD 12/21/2024 4:42 PM EDT [facility] Squamous Epithelial, Urine 10 0 - 60 /LPF LAB URINALYSIS - AUTOMATED METHOD 12/21/2024 4:42 PM EDT [facility] Bacteria, Urine Negative Negative /HPF LAB URINALYSIS - AUTOMATED METHOD 12/21/2024 4:42 PM EDT [facility] Hyaline Casts, Urine 1.2 0 - 3 /LPF LAB URINALYSIS - AUTOMATED METHOD 12/21/2024 4:42 PM EDT [facility] Urine Urine specimen obtained by clean catch procedure / Unknown Non-blood Collection / Unknown 12/21/2024 4:01 PM EDT 12/21/2024 4:19 PM EDT Nicol WALTERS LAB URINE ORDERABLES Fin al Result Performing Organization Address City/[facility]/ZIP Co de Phone Number [facility] [address] [place] [address], [place] [phone] * Lui urine culture tube (12/21/2024 4:01 PM EDT) Extra Tube Hold for add-ons. 12/21/2024 6:01 PM EDT [facility] Comment:Auto resulted. Urine Urine specimen obtained by clean catch procedure / Unknown Non-blood Collection / Unknown 12/21/2024 4:01 PM EDT 12/21/2024 4:19 PM EDT Nicol WALTERS LAB URINE ORDERABLES Fin al Result [facility] [address] [place] [address], [place] [phone] * Culture urine (12/21/2024 4:01 PM EDT) Culture, Urine No growth 12/23/2024 8:25 AM EDT [facility] Urine Urine specimen obtained by clean catch procedure / Unknown Non-blood Collection / Unknown 12/21/2024 4:01 PM EDT 12/21/2024 4:42 PM EDT Niclo WALTERS LAB MICROBIOLOGY - GENER AL ORDERABLES Final Result [facility] [address] [place] [address], [place] [phone] * [id number], RSV, Influenza A and B qualitative RT-PCR (12/21/2024 3:58 PM EDT) [facility] Influenza A PCR Not Detected Not Detected LAB MICROBIOLOGY METHOD 12/21/2024 4:59 PM EDT [facility] Influenza B PCR Not Detected Not Detected LAB MICROBIOLOGY METHOD 12/21/2024 4:59 PM EDT [facility] RSV PCR Not Detected Not Detected LAB MICROBIOLOGY METHOD 12/21/2024 4:59 PM EDT [facility] SARS COV-2 Not Detected Not Detected LAB MICROBIOLOGY METHOD 12/21/2024 4:59 PM EDT [facility] Swab Both anterior nares / Unknown Non-blood Collection / Unknown 12/21/2024 3:58 PM EDT 12/21/2024 4:16 PM EDT Elsie Crawford MD LAB MICROBIOLOGY - GENERAL ORDER RENEA Final Result [facility] [address] [place] [address], [place] [phone] * (ABNORMAL) CBC auto differential (12/21/2024 3:58 PM EDT) Pathologist [facility] [place] WBC 8.7 4.8 - 10.8 K/mcL LAB HEMETOLOGY METHOD 12/21/2024 4:28 PM EDT [facility] RBC 4.50 4.50 - 5.50 M/mcL LAB HEMETOLOGY METHOD 12/21/2024 4:28 PM EDT [facility] Hemoglobin 14.3 13.5 - 17.5 g/dL LAB HEMETOLOGY METHOD 12/21/2024 4:28 PM EDT [facility] Hematocrit 43.2 42.0 - 54.0 % LAB HEMETOLOGY METHOD 12/21/2024 4:28 PM EDT [facility] MCV 95.8 79.0 - 98.0 FL LAB HEMETOLOGY METHOD 12/21/2024 4:28 PM EDT [facility] MCH 31.7 27.0 - 32.0 pcg LAB HEMETOLOGY METHOD 12/21/2024 [facility] MCHC 33.1 32.0 - 37.0 g/dL LAB HEMETOLOGY METHOD 12/21/2024 4:28 PM EDT [facility] RDW 12.0 11.0 - 15.0 % LAB HEMETOLOGY METHOD 12/21/2024 4:28 [facility] Platelets 218 130 - 400 K/mcL LAB HEMETOLOGY METHOD 12/21/2024 4:[address] [facility] MPV 11.1(H) 7.0 - 11.0 FL LAB HEMETOLOGY METHOD 12/21/2024 4:28 PM EDT [facility] NRBC 0.0 <1.0 % LAB HEMETOLOGY METHOD 12/21/2024 4:28 PM EDT [facility] NRBC Absolute 0.00 <0.10 K/mcL LAB HEMETOLOGY METHOD 12/21/2024 4:28 [facility] Neutrophils Relative 62.4 % LAB HEMETOLOGY METHOD 12/21/2024 4:28 [facility] Lymphocytes Relative 30.4 % LAB HEMETOLOGY METHOD 12/21/2024 4:28 PM EDT [facility] Monocytes Relative 6.3 % LAB HEMETOLOGY METHOD 12/21/2024 4:28 PM EDT [facility] Eosinophils Relative 0.5 % LAB HEMETOLOGY METHOD 12/21/2024 4:28 PM EDT [facility] Basophils Relative 0.2 % LAB HEMETOLOGY METHOD 12/21/2024 4:28 PM EDT [facility] Immature Granulocytes Relative 0.2 % LAB HEMETOLOGY METHOD 12/21/2024 4:28 PM EDT [facility] Neutrophils Absolute 5.41 1.50 - 7.00 K/mcL LAB HEMETOLOGY METHOD 12/21/2024 4:[facility] Lymphocytes Absolute 2.64 1.00 - 5.00 K/mcL LAB HEMETOLOGY METHOD 12/21/2024 4:28 PM EDT [facility] Monocytes Absolute 0.55 0.20 - 1.00 K/mcL LAB HEMETOLOGY METHOD 12/21/2024 4:28 PM EDT [facility] Eosinophils Absolute 0.04 0.00 - 0.50 K/mcL LAB HEMETOLOGY METHOD 12/21/2024 4:28 PM EDT [facility] Basophils Absolute 0.02 0.00 - 0.20 K/mcL LAB HEMETOLOGY METHOD 12/21/2024 4:28 PM EDT [facility] Immature Granulocytes Absolute 0.02 0.00 - 0.03 K/mcL LAB HEMETOLOGY METHOD 12/21/2024 4:[address] [facility] Blood Venous blood specimen / Unknown Venipuncture / Unknown 12/21/2024 3:58 PM EDT 12/21/2024 4:18 PM EDT us Elsie Ty MD LAB BLOOD ORDERABLES Final Resul t [facility] [address] [place] [address], * (ABNORMAL) Comprehensive metabolic panel (12/21/2024 3:58 PM EDT) Sodium 136 133 - 145 mmol/L LAB CHEMISTRY METHOD 12/21/2024 5:[facility] Potassium 4.1 3.5 - 5.5 mmol/L LAB CHEMISTRY METHOD 12/21/2024 5:[address] [facility] Chloride 103 96 - 110 mmol/L LAB CHEMISTRY METHOD 12/21/2024 5:[address] [facility] CO2 29 21 - 32 mmol/L LAB CHEMISTRY METHOD 12/21/2024 5:[address] [facility] Anion Gap 4 3 - 11 LAB CHEMISTRY METHOD 12/21/2024 5:[address] [facility] Glucose 128(H) 70 - 100 mg/dL LAB CHEMISTRY METHOD 12/21/2024 5:[address] [facility] BUN 10 5 - 25 mg/dL LAB CHEMISTRY METHOD 12/21/2024 5:[address] [facility] Creatinine 1.26 0.70 - 1.30 mg/dL LAB CHEMISTRY METHOD 12/21/2024 5:[facility] eGFR 77 >=60 mL/min/1. 73m2 LAB CHEMISTRY METHOD 12/21/2024 5:[address] [facility] Comment:Calculation based on the Chronic Kidney Disease Epidemiology Collaboration (CKD-EPI) equation refit without adjustment for race. BUN/Creatinine Ratio 7.9 LAB CHEMISTRY METHOD 12/21/2024 5:[address] [facility] Calcium 9.8 8.5 - 10.5 mg/dL LAB CHEMISTRY METHOD 12/21/2024 5:04 PM EDT [facility] AST (SGOT) 15 10 - 42 unit/L LAB CHEMISTRY METHOD 12/21/2024 5:04 PM EDT [facility] ALT (SGPT) 21 10 - 60 unit/L LAB CHEMISTRY METHOD 12/21/2024 5:04 PM EDT [facility] Alkaline Phosphatase 101 42 - 121 unit/L LAB CHEMISTRY METHOD 12/21/2024 5:04 PM EDT [facility] Total Protein 8.2(H) 6.0 - 8.0 g/dL LAB CHEMISTRY METHOD 12/21/2024 5:04 PM EDT [facility] Albumin 3.9 3.2 - 5.0 g/dL LAB CHEMISTRY METHOD 12/21/2024 5:04 PM EDT [facility] Total Bilirubin 0.7 0.0 - 1.4 mg/dL LAB CHEMISTRY METHOD 12/21/2024 5:04 PM EDT [facility] Blood Venous blood specimen / Unknown Venipuncture / Unknown 12/21/2024 3:58 PM EDT 12/21/2024 4:18 PM EDT us Elsie Crawford MD LAB BLOOD ORDERABLES Final Resul t [facility] [address] [place] [address], [place] [phone] from Last 3 Months Insurance MEDICAID - [place] [employer] [place] [employer] [address] [place] [address] Care Teams Chenille Machine Operator Relationship Specialty Start Date End Date Physician, No Pcp PCP - General 08/23/24
[2024-12-24 20:38] VITALS: BP 130/79; PULSE 103; RESP 16; TEMP 36.8; O2SAT 95
[2024-12-25] MEDS: guaiFENesin LA 600 MG TAB.ER.12H PO (01:21)
[2024-12-25 07:47] LABS: Hemoglobin A1C 93.8798 umol/L; Total Hemoglobin (HGBA1C) 3432.8683 umol/L
[2024-12-25 08:07] LABS: Alanine Aminotransferase 20 U/L (0-40); Albumin Level 4.1 g/dL (3.5-5.0); Alkaline Phosphatase 75 U/L (39-117); Anion Gap 13 (12-20); Aspartate Amino Transferase 18 U/L (5-37); Blood Urea Nitrogen 15 mg/dL (9-16); Calcium 9.6 mg/dL (8.4-10.2); Carbon Dioxide 27 mmol/L (22-29); Chloride 105 mmol/L (96-108); Cholesterol 127 mg/dL (<200); Creatinine Clr Calc Pharmacy 105.6; Estimated Glomerular Filt Rate > 60; HDL Cholesterol 29 mg/dL (>40); Potassium 4.6 mmol/L (3.3-5.1); Sodium 140 mmol/L (135-145); Total Protein 7.3 g/dL (6.5-8.0); Triglycerides 118 mg/dL (<150)
--- NOTE | 2024-12-25 08:16 | HO.PM.IMCN ---
History of Present Illness Data of Consult Service Date: 12/25/24 Primary Care Provider: Unknown Physician HPI Reason for consult: Medical consult 34-year-old male with a past medical history of PTSD, HIV, depression, bipolar, anxiety, insomnia presented to ED with fever and congestion and ingestion of Tylenol to end his life. His troponins and EKG were within normal limits lowering suspicion for ACS. Chest x-ray was negative. Urine without evidence infection, negative viral swabs. No leukocytosis or anemia, no electrolyte imbalances. On exam he has no complaints, reports that he has been taking his Biktarvy on a regular basis. Review of Systems Review of Systems: Denies any shortness of breath, chest pain, headaches, dysuria, abdominal pain or discomfort, nausea, vomiting or diarrhea. Denies fever or chills. [facility] Medical History (Updated 09/08/24 @ 00:01 by Yuliana Murguia) Episode of syncope HIV (human immunodeficiency virus infection) Social History Household Members: Friend(s) Housing: Apartment Housing Other:: no electricity Do you presently have visiting nurse or other home services: No Patient Tobacco Use Status: Current everyday Tobacco user Tobacco use type: Cigarette Cigarettes Per Day: 4 Smoked in Last 30 Days: Yes e-Cigarette/Vaping Use: Never Used Patient Interested in Nicotine Replacement: Yes Patient Given Instructions on How to Stop Smoking: No Second Hand Smoke Exposure: No Have you been hit, kicked, punched, or otherwise hurt by someone within the past year? If so, by whom?: No Do you feel safe in your current relationship?: No Current Relationship Is there a partner from a previous relationship who is making you feel unsafe now?: No Are you made to feel afraid or neglected: No Advance Directives: No Advance Directives Information Provided: No Do you have a plan to hurt others: No Plan Recently lost weight without trying: No Eating poorly because of decreased appetite: No Nutrition Risks: No Nutritional Risk Poor oral hygiene: No service: No Sexual orientation: Straight/Heterosexual Meds Allergies Allergy/AdvReac Type Severity Reaction Status Date / Time aspirin Allergy Hemolytic Verified 08/25/24 14:52 Anemia quetiapine (From Seroquel) Allergy Seizure Verified 08/25/24 15:56 Active Medications: Current Medications Acetaminophen (Acetaminophen 325 Mg Tablet) 650 mg PO Q6H PRN PRN Reason: Headache/Pain, Scale 1-10 Al Hydroxide/Mg Hydroxide (Magnesium Hydrox/Alum Hydrox 30 Ml Oral.Susp) 30 ml PO Q6H PRN PRN Reason: Heartburn/Nausea Aripiprazole (Aripiprazole 30 Mg Tablet) 30 mg PO DAILY [facility] Bictegravir/Emtricitabine/Tenofovir (Bictegrav/Emtricit/Tenofov Ala Tablet) 1 tab PO DAILY [facility] Chlorpromazine HCl (Chlorpromazine Hcl 25 Mg Tablet) 25 mg PO BID [facility] Last Admin: 12/24/24 21:09 Dose: 25 mg Hydroxyzine HCl (Hydroxyzine Hcl 25 Mg Tablet) 25 mg PO Q6H PRN PRN Reason: mild anxiety Last Admin: 12/25/24 01:21 Dose: 25 mg Magnesium Hydroxide (Milk Of Magnesia 30 Ml Oral.Susp) 30 ml PO DAILY PRN PRN Reason: Constipation Last Admin: 12/24/24 17:07 Dose: 30 ml Nicotine (Nicotine 14 Mg Patch.Td24) 14 mg TRANSDERMA DAILY [facility] Last Admin: 12/24/24 17:07 Dose: 14 mg Nicotine Polacrilex (Nicotine Polacrilex 2 Mg Gum) 4 mg BUCCAL Q2H PRN PRN Reason: Nicotine Cravings Olanzapine (Olanzapine 5 Mg Tablet) 5 mg PO Q4H PRN PRN Reason: agitation Sertraline HCl (Sertraline Hcl 50 Mg Tablet) 150 mg PO DAILY [facility] Last Admin: 12/24/24 17:09 Dose: Not Given Trazodone HCl (Trazodone Hcl 50 Mg Tablet) 50 mg PO BEDTIME MRX1 PRN PRN Reason: Insomnia Home Medications ?Medication ?Instructions ?Recorded ?Confirmed ?Last Taken ?Type aripiprazole 20 mg tablet (Abilify) 30 mg PO DAILY 12/24/24 12/24/24 12/24/24 09:00 History chlorpromazine 25 mg tablet 25 mg PO BID Anxiety 12/24/24 12/24/24 12/23/24 21:00 History Physical Exam Vital Signs and Narrative: Vital Signs: Last Vital Signs Temp 98.2 F 12/24/24 20:38 Pulse 103 H 12/24/24 20:38 Resp 16 12/24/24 20:38 BP 130/79 12/24/24 20:38 Pulse Ox 95 12/24/24 20:38 O2 Del Method Room Air 12/24/24 20:38 BMI result Body Mass Index 29.3 Alert and oriented X3, clam and cooperative. Answers questions. Neuro: CN II-X11 intact, no deficits, visual acuity intact. Ambulating at baseline. EYES: PERRLA, EOM intact ENT: Hearing intact, MMM Cardiac: S1 S2 RRR, No ectopy Pulmonary: lungs clear to auscultation, No increased WOB. Abdominal: BS active in all 4 quadrants, no guarding or tenderness MSK: Strength 5/5 upper and lower extremities : Deferred Extremities: No edema in lower extremities Psych: Mood stable, Quiet and cooperative. Skin: Warm and dry, Intact Results Labs 12/25/24 07:22 Labs: Laboratory Results - last 24 hr 12/25/24 07:22 Anion Gap 13 Estim Creat Clear Calc 105.6 Estimated GFR > 60 Random Glucose 112 Estimat Average Glucose 88 Hemoglobin A1c % 4.7 Calcium 9.6 Total Bilirubin 0.5 AST 18 ALT 20 Alkaline Phosphatase 75 Total Protein 7.3 Albumin 4.1 Triglycerides 118 Cholesterol 127 LDL Cholesterol, Calc 75 HDL Cholesterol 29 L Assessment and Plan (1) PTSD (post-traumatic stress disorder): Status: Acute Plan 34-year-old male with past medical history listed below, presents to the ED after intentionally ingesting Tylenol on an attempt to end his life. He is admitted here for further care and treatment. Bipolar disorder/anxiety/depression Treatment per psych team HIV+ Patient reports that he since his last admission he has been consistently taking his Biktarvy Thank you for allowing me to participate in the care of this patient. Will follow with you, please notify medical provider with any changes in condition or concerns.
--- NOTE | 2024-12-25 09:23 | HO.PSYADMNOT ---
HPI Date of Service: 12/25/24 Chief Complaint: unspecified depressive disorder Sources of Information: patient interviewed, chart reviewed and crisis/core team assessment reviewed HPI Subjective Notes: Figueroa Warning, Conditional Voluntary and 3 Day Narrative: Patient is a 34-year-old male with history of bipolar disorder and PTSD who presented to ER via ambulance due to medical concerns. When in ER patient reported suicidal ideation with a plan to take a lot of Tylenol . Per crisis report, patient presented to ER via ambulance complaining of chest pain and sinus congestion for the past week. Patient reported he has been off his Abilify for the past 4 days and was having suicidal ideation. He had plans of taking a lot of Tylenol pills . History of suicidal ideation and suicide attempt via overdose. Patient reported having suicidal thoughts for the past 24 hours. Patient reported he was feeling suicidal due to not taking his medication for the past 24 hours. He reports having refills for his medications. Patient stated he did take 6-7 tablets of Tylenol for both pain and to harm himself . Patient stated, I took it for both pain and to act out . Patient denied HI/VH/AH. Denies any substance use. During admission assessment, patient presents alert and oriented x3. Calm and cooperative. Patient reports feeling good ; patient stated, I had a bad sinus infection and I wanted to be seen. I thought if I said I would take more Tylenol they would see me sooner. I love life. I'm not killing myself for nothing . Patient adamantly denies SI/HI/VH/AH. Patient reports his roommate was not at home and he had no way of getting into the apartment so he lied to not be out in the streets . Patient stated, I wanted to stay at the hospital so I wasn't locked out. I just needed a place for the night. I know what to say to get into a hospital. It's easy to get into one. My medications are fine. I don't need anything . Patient is requesting to be discharged today rather than on his three-day notice that is up on December 29 2024. Patient reports he plans on following up with his outpatient providers through [facility]. Past Psychiatric History: hx of 3 other inpatient psychiatric hospitalizations. hx of SA via OD on seroquel and fentanyl a year ago. Patient reports this was not an intentional overdose to end his life. denies hx of SIB. Outpatient psychiatric providers through [facility]. Medical Evaluation Reviewed: Yes [facility] Medical History (Updated 09/08/24 @ 00:01 by Background Blade) Episode of syncope HIV (human immunodeficiency virus infection) Family History: Mother: bipolar Social History: Homeless, single. no kids. unemployed. highest level of education completed GED. Substance History: Marijuana occasionally. Trauma History: yes Diagnostics Vital Signs (24Hr): Vital Signs - 24 hr 12/24/24 15:16 12/24/24 20:38 Temperature 97.9 F 98.2 F Pulse Rate 106 H 103 H Respiratory Rate 18 16 Blood Pressure 129/64 130/79 Pulse Oximetry 97 95 Oxygen Delivery Method Room Air Room Air BMI result Body Mass Index 29.3 Labs 12/25/24 07:22 Labs: Laboratory Results - last 48 hr 12/25/24 07:22 Sodium 140 Potassium 4.6 Chloride 105 Carbon Dioxide 27 Anion Gap 13 BUN 15 Creatinine 1.16 Estim Creat Clear Calc 105.6 Estimated GFR > 60 Random Glucose 112 Estimat Average Glucose 88 Hemoglobin A1c % 4.7 Calcium 9.6 Total Bilirubin 0.5 AST 18 ALT 20 Alkaline Phosphatase 75 Total Protein 7.3 Albumin 4.1 Triglycerides 118 Cholesterol 127 LDL Cholesterol, Calc 75 HDL Cholesterol 29 L Meds/Allergies Meds Home Medications ?Medication ?Instructions ?Recorded ?Confirmed ?Type aripiprazole 20 mg tablet (Abilify) 30 mg PO DAILY 12/24/24 12/24/24 History chlorpromazine 25 mg tablet 25 mg PO BID Anxiety 12/24/24 12/24/24 History Allergies Allergies Allergy/AdvReac Type Severity Reaction Status Date / Time aspirin Allergy Hemolytic Verified 08/25/24 14:52 Anemia quetiapine (From Seroquel) Allergy Seizure Verified 08/25/24 15:56 Mental Status Exam Mental Status Exam Narrative: Pt is alert and oriented; behavior is cooperative, friendly and calm; dressed in casual attire; mood is described as good ; eye contact appropriate; Speech is normal rate, volume and not pressured; thought process is organized; Thought content is on discharge; denies SI/HI/VH/AH. Assessment & Plan Assessment & Plan (1) Bipolar 1 disorder: Status: Acute Code(s): F31.9 - Bipolar disorder, unspecified (2) PTSD (post-traumatic stress disorder): Status: Acute Code(s): F43.10 - Post-traumatic stress disorder, unspecified Plan Patient is a 34-year-old male with history of bipolar disorder and PTSD who presented to ER via ambulance due to medical concerns. When in ER patient reported suicidal ideation with a plan to take a lot of Tylenol . Plan: /3 day notice 15 mintue safety checks Continue home medications Encourage groups Discharge planning Patient is requesting to be discharged home. Adamantly denies SI/HI/VH/AH. He reports he won't ever lie about that again because it didn't bucket turner how I wanted it to . Patient reports he plans on following up with his outpatient providers. Patient educated on: diagnosis and medication risk/benefits Reason for continued inpatient stay Substantial Risk for: stable for discharge Statement Statement: I have reviewed the history and physical and performed a pertinent examination on my patient. No changes have occurred unless specified. If the History and Physical was not performed prior to admission, the Hospitalist's service will be consulted for completing the admission physical. Time Spent With Patient Time: Total time managing care of this patient today _60___ minutes.
[2024-12-25] MEDS: Bictegrav/Emtricit/Tenofov Ala TABLET 1 TAB PO (09:31)
[2024-12-25] MEDS: ARIPiprazole 30 MG TABLET PO (09:31)
[2024-12-25] MEDS: Nicotine 14 MG PATCH.TD24 TRANSDERMA (09:32)
--- NOTE | 2024-12-25 09:39 | PC.NURSE ---
Pt declined flu vaccine
--- NOTE | 2024-12-25 11:39 | PM.PSYDC ---
DS: Providers Provider Date of Service: 12/25/24 Date of admission: 12/24/24 14:45 Date of discharge: 12/25/24 Primary care physician: Unknown Physician Admitting clinician: Beena Peace Attending physician on admission: Edy Sandoval Consults: 12/24/24 15:02 Consult to Hospitalist Routine Comment: [place] [facility] [place] Reason For Exam: new admit, H&P Attending physician on discharge: Edy Sandoval Discharging clinician: Beena Peace DS: Medications Discharge Medications Home Medications: Home Medications ?Medication ?Instructions ?Recorded ?Confirmed aripiprazole 20 mg tablet (Abilify) 30 mg PO DAILY 12/24/24 12/24/24 chlorpromazine 25 mg tablet 25 mg PO BID Anxiety 12/24/24 12/24/24 Previous Rx's ?Medication ?Instructions ?Recorded bictegravir 50 mg-emtricitabine 1 tab PO DAILY 30 days #30 tabs 08/31/24 200 mg-tenofovir alafenam 25 mg tablet (Biktarvy) sertraline 150 mg capsule 150 mg PO DAILY 30 days #30 caps 08/31/24 Mental Status Exam Mental Status Exam Narrative: Pt is alert and oriented; behavior is cooperative, friendly and calm; dressed in casual attire; mood is described as good ; eye contact appropriate; Speech is normal rate, volume and not pressured; thought process is organized; Thought content is on discharge; denies SI/HI/VH/AH. Data Data Completed and Pending Completed studies during hospitalization [Text1]: 12/25/24 07:22 Sodium 140 Potassium 4.6 Chloride 105 Carbon Dioxide 27 Anion Gap 13 BUN 15 Creatinine 1.16 Estim Creat Clear Calc 105.6 Estimated GFR > 60 Random Glucose 112 Estimat Average Glucose 88 Hemoglobin A1c % 4.7 Calcium 9.6 Total Bilirubin 0.5 AST 18 ALT 20 Alkaline Phosphatase 75 Total Protein 7.3 Albumin 4.1 Triglycerides 118 Cholesterol 127 LDL Cholesterol, Calc 75 HDL Cholesterol 29 L DS: Summary Hospital Course Hospital Course: Patient is a 34-year-old male with history of bipolar disorder and PTSD who presented to ER via ambulance due to medical concerns. When in ER patient reported suicidal ideation with a plan to take a lot of Tylenol . Per crisis report, patient presented to ER via ambulance complaining of chest pain and sinus congestion for the past week. Patient reported he has been off his Abilify for the past 4 days and was having suicidal ideation. He had plans of taking a lot of Tylenol pills . History of suicidal ideation and suicide attempt via overdose. Patient reported having suicidal thoughts for the past 24 hours. Patient reported he was feeling suicidal due to not taking his medication for the past 24 hours. He reports having refills for his medications. Patient stated he did take 6-7 tablets of Tylenol for both pain and to harm himself . Patient stated, I took it for both pain and to act out . Patient denied HI/VH/AH. Denies any substance use. During admission assessment, patient presents alert and oriented x3. Calm and cooperative. Patient reports feeling good ; patient stated, I had a bad sinus infection and I wanted to be seen. I thought if I said I would take more Tylenol they would see me sooner. I love life. I'm not killing myself for nothing . Patient adamantly denies SI/HI/VH/AH. Patient reports his roommate was not at home and he had no way of getting into the apartment so he lied to not be out in the streets . Patient stated, I wanted to stay at the hospital so I wasn't locked out. I just needed a place for the night. I know what to say to get into a hospital. It's easy to get into one. My medications are fine. I don't need anything . Patient is requesting to be discharged today rather than on his three-day notice that is up on December 29 2024. Patient reports he plans on following up with his outpatient providers through [facility]. Plan: CV/3 day notice 15 minute safety checks Continue home medications Encourage groups Discharge planning Patient is requesting to be discharged home. Adamantly denies SI/HI/VH/AH. He reports he won't ever lie about that again because [place] how I wanted it to . Patient reports he plans on following up with his outpatient providers. Status at Discharge Cognitive/behavioral status at discharge: Patient has insight and demonstrates good judgment in terms of wanting to pursue treatment. Patient has a safety plan that includes presenting to the closest ER or calling 911 if feeling unsafe. Functional status at discharge: independent ambulation Overall status at discharge: patient is back to baseline Time Spent with Patient Time attestation: Total time managing care of this patient today _20___ minutes. Time spent: Less than 30 minutes Discharge Plan Discharge Anticipated Discharge Date/Time: 12/25/24 13:00 Patient Disposition: Home, Self-Care Discharge Diagnosis: Bipolar d/o, PTSD Referrals: [facility] [Provider Group] - 1 Week Discharge Medications: Continued chlorpromazine 25 mg tablet 25 mg PO BID aripiprazole [Abilify] 20 mg tablet 30 mg PO DAILY Biktarvy 50-200-25 mg Tablet 1 tab PO DAILY 30 Days Qty: 30 0RF sertraline 150 mg capsule 150 mg PO DAILY 30 Days Qty: 30 0RF Patient Comments: Pt reports he is no longer taking this medication Discharge Orders: Discharge Order (Routine); Ordered 12/25/24 Ordered By: Beena Peace Diet: Regular diet Activity on Discharge: As tolerated Stand Alone Forms: Patient Portal Discharge page, Community Support Print Language: Norwegian Care Plan Goals: Maintain mood and safe behaviors Take medications as prescribed Practice coping skills Continue with outpatient providers and reach out to them as needed Health Concerns: Mood stability and behaviors Plan of Treatment: Follow up with your PCP, psychiatric provider and other outpatient providers regarding above concerns Take medications as prescribed Assessment: Patient has insight and demonstrates good judgment in terms of wanting to pursue treatment. Patient has a safety plan that includes presenting to the closest ER or calling 911 if feeling unsafe. Discharge Date/Time: 12/25/24 12:25
== END 2024-12-25 12:25 | disposition home or self-care (01) | DRG 753 ==
PROVIDERS: Admitting Provider Psychiatry & Neurology Psychiatry; Responsible Provider Registered Nurse; Visit Provider Psychiatry & Neurology Psychiatry
DX: F31.9 Bipolar disorder, unspecified (principal); F17.210 Nicotine dependence, cigarettes, uncomplicated; F43.10 Post-traumatic stress disorder, unspecified; Z21 Asymptomatic human immunodeficiency virus [HIV] infection status; Z71.6 Tobacco abuse counseling; Z79.899 Other long term (current) drug therapy
CPT/HCPCS: 36415; 80053; 80061; 83036

== ENCOUNTER → 2024-12-24 14:45 | Outpatient (BNV) | payer MEDICAID, SELFPAY | PROVIDERS: Admitting Provider Psychiatry & Neurology Psychiatry; Responsible Provider Registered Nurse; Visit Provider Registered Nurse | DX: F31.4 Bipolar disorder, current episode depressed, severe, without psychotic features (principal); F43.11 Post-traumatic stress disorder, acute | CPT/HCPCS: 90792; 99499 ==

== ENCOUNTER → 2024-12-24 14:45 | Outpatient (BNV) | payer MEDICAID, SELFPAY | PROVIDERS: Admitting Provider Psychiatry & Neurology Psychiatry; Responsible Provider Registered Nurse; Visit Provider Nurse Practitioner Family | DX: F43.10 Post-traumatic stress disorder, unspecified (principal) | CPT/HCPCS: 99221 ==